=== PATIENT | female | born 1985 ===

== ENCOUNTER 2021-04-30 10:17 | Emergency (ER) | payer OTHER, SELFPAY ==
[2021-04-30] VITALS (9 sets, daily range): BP systolic 118–189; BP diastolic 60–138; PULSE 52–92; RESP 12–24; TEMP 36.7–36.8; O2SAT 97–98; BMI 30.4
--- NOTE | ~2021-04-30 | CT_ITS ---
EXAMINATION: CTA NECK WITH CONTRAST (STROKE) CTA BRAIN WITH CONTRAST (STROKE) CLINICAL INFORMATION: Suspect acute stroke. Assess for major vessel occlusion. Please call report. Severe headache. Sudden onset. COMPARISON: Unenhanced CT the head 04/30/2021 TECHNIQUE: CTA of the head and neck was performed in the axial plane from the mediastinum to the skull vertex using 70 mL Omnipaque 350 intravenous contrast. Additional reformatted multiplanar images including maximum intensity projection MIP images are generated on the CT workstation. This CT examination was performed using dose optimization techniques as appropriate, variously including the following: *Automated exposure control *Adjustment of mA and/or kV according to patient size (this includes techniques or standardized protocols for targeted exams where dose is matched to indication/reason for exam; i.e. extremities or head) *Use of iterative reconstruction technique DLP: 1613 mGy-cm FINDINGS: The degree of stenosis determined by criteria similar to NASCET. Brain: Delayed IV contrast and CT the head: The ventricles and sulci are normal in size and configuration. No focal parenchymal lesions of the brain or abnormal extra-axial fluid collections are identified. No intracranial hemorrhage, tumors or acute infarcts are visualized. Normal intraluminal opacification is noted in the major intracranial dural sinuses. The visualized paranasal sinuses, mastoid air cells and middle ear cavities demonstrate no significant opacification. The orbits and globes are normal in appearance. CT angiography neck: The cervical carotid and vertebral artery systems are normal in appearance. The right vertebral artery is dominant. The carotid bulbs are patent. Conventional branching anatomy of the great vessels in relation to the transverse aorta is visualized. CT angiography head: type origin of the right posterior cerebral artery is visualized. No intracranial occlusions, stenoses or aneurysms are visualized. Visualized lung apices are clear. The thyroid is normal in appearance. No cervical lymphadenopathy is identified. Mild left and moderate intervertebral disc space narrowing and endplate osteophytosis posteriorly is present at C5-C6 and C6-C7. CT/CT angio head neck stroke IMPRESSION: 1. Normal CT angiography of the head and neck. No large vessel intracranial occlusions. No intracranial aneurysms identified. Patent carotid bulbs. 2. No intracranial abnormalities identified. 3. Mild multilevel chronic spondylosis of the cervical spine. This result was discussed with Kenan Erwin MD by telephone at 04/30/2021 12:03 PM and it was ascertained that the content and urgency of the report was understood at the time of direct communication.
--- NOTE | ~2021-04-30 | CT_ITS ---
EXAMINATION: CT HEAD WITHOUT CONTRAST (STROKE PROTOCOL) CLINICAL INFORMATION: Stroke protocol. Severe headache, sudden onset. COMPARISON: None TECHNIQUE: Contiguous axial imaging was performed from the skull base to vertex without intravenous administration of contrast. This CT examination was performed using dose optimization techniques as appropriate, variously including the following: *Automated exposure control *Adjustment of mA and/or kV according to patient size (this includes techniques or standardized protocols for targeted exams where dose is matched to indication/reason for exam; i.e. extremities or head) *Use of iterative reconstruction technique DLP: 713 mGy-cm FINDINGS: There is no intracranial hemorrhage, hematoma, or extra-axial fluid collection. The ventricles are normal in size. There is no hydrocephalus, edema, or mass effect. The burciaga-white matter differentiation appears symmetric. There is no acute infarct or mass lesion. The calvarium appears intact. There is no pneumocephalus or orbital emphysema. The visualized sinuses and middle ears and mastoid air cells show no significant mucosal thickening. There are no air-fluid levels. CT/CT head for stroke IMPRESSION: No acute intracranial process seen. This critical result was discussed with Dr. Erwin at 10:48 AM on 04/30/2021. It was ascertained that the content and urgency of the report was understood at the time of direct communication.
--- NOTE | 2021-04-30 10:25 | ED.HA ---
HPI - Headache General Chief Complaint: Headache Stated Complaint: ? Time Seen by Provider: 04/30/21 10:18 Source: patient Mode of arrival: ambulatory History of Present Illness HPI Narrative: THIS IS A 36 YEARS OLD FEMALE PRESENTED TO THE EMERGENCY ROOM WITH A SUDDEN ONSET OF A HEADACHE 07/10 A BRUIT Onset (ago): hour(s) (1) Onset description: suddenly Location: frontal and temporal Severity: severe Quality & Timing: aching and worst headache of life Associated symptoms: none Related Data Allergies Allergy/AdvReac Type Severity Reaction Status Date / Time No Known Allergies Allergy Verified 04/30/21 10:22 Review of Systems Review of Systems: Yes all other systems are reviewed and are negative Constitutional: Constitutional: Reports no additional constitutional complaints Eyes: Eyes: Reports no additional eye complaints ENT: Reports system reviewed and no additional complaints, except as documented Cardiovascular: Cardiovascular: Reports no additional cardiovascular complaints Gastrointestinal: Gastrointestinal: Reports no additional gastrointestinal complaints PMFSH Social History Social History Advance Directives: No Advance Directives Information Provided: No Physical Exam Vital Signs: Vital Signs: Last Vital Signs Temp 98.3 F 04/30/21 13:56 Pulse 78 04/30/21 16:16 Resp 14 04/30/21 14:12 BP 154/64 H 04/30/21 16:16 Pulse Ox 97 04/30/21 14:12 Body Mass Index 30.4 Const: Other: PATIENT IS IN ACUTE DISTRESS CRYING Nutritional Appearance: average body habitus HENMT: Head: Yes normal to inspection General nose exam: Normal external nose present Face and sinus: Yes normal facial exam Eyes: General: appearance normal, both eyes and all related structures EOM: EOMs intact bilaterally Neck: Neck: Yes normal visual inspection, Yes full ROM, Yes no lymphadenopathy and Yes no meningeal signs Chest: Chest palpation & inspection: normal inspection of the chest Resp: Effort & Inspection: normal respiratory effort Auscultation: clear to auscultation bilaterally Cardio: Rate: regular rate Rhythm: regular rhythm GI: Inspection: Yes normal to inspection Palpation (GI): Soft to palpation, not firm, nontender and no guarding Auscultation: normal bowel sounds Neuro: Other: AWAKE ALERT ORIENTED X3 NO NEURO DEFICIT General: no meningeal signs Course Course Course Narrative: REEXAMINED AT 14:48 AND SHE IS FEELING BETTER SHE IS COMFORTABLE. HER WORKUP IS NEGATIVE WE DID CT HEAD, WE DID A CT ANGIOGRAPHY OF THE HEAD WE DID A SPINAL TAP. I THINK THE PATIENT CAN BE SAFELY DISCHARGED HOME AT THIS POINT Reevaluation(s) Reevaluation #1: We were about to discharge the patient and she started to vomit, at this point we give Reglan IV and the case was signed out to Dr Cordova [facility] - Headache Lab Data Attestation: I reviewed the patient's lab results. Result diagrams: 04/30/21 11:21 04/30/21 11:21 Labs: Lab Results 04/30/21 04/30/21 04/30/21 Range/Units 10:34 10:43 11:21 WBC 7.6 (4.8-10.8) X10*3/uL RBC 4.66 (4.20-5.50) X10*6/uL Hgb 14.1 (12.0-16.0) g/dl Hct 40.1 (37-47) % MCV 86.1 (80-98) fL MCH 30.3 (27.0-33.0) pg MCHC 35.2 H (31.0-35.0) g/dl RDW 13.2 (11.0-16.0) % Plt Count 223 (160-400) X10*3/uL MPV 11.4 (9.4-12.3) fL Immature Gran % (Auto) 0.3 (0.0-0.4) % Neut % (Auto) 65.5 (45-73) % Lymph % (Auto) 23.1 (20-40) % Lincoln % (Auto) 6.5 (2-11) % Eos % (Auto) 4.2 H (0-4) % Baso % (Auto) 0.4 (0-2) % Lymph # (Auto) 1.8 (1.2-4.9) X10*3/uL Lincoln # (Auto) 0.5 (0.1-1.2) X10*3/uL Eos # (Auto) 0.3 (0.0-0.4) X10*3/uL Baso # (Auto) 0.0 (0.0-0.2) X10*3/uL Abs Immat Gran (auto) 0.02 (0.00-0.03) X10*3/uL Absolute Neuts (auto) 5.0 (2.0-8.3) X10*3/uL Absolute Nucleated RBC 0.000 (0.0-0.012) X10*3/uL Nucleated RBC % (auto) 0.0 (0.0-0.2) /100WBC Whole Blood PT 11.9 (11.1-13.5) sec Whole Blood INR 1.0 (0.9-1.1) Sodium (135-145) mmol/L Potassium (3.3-5.1) mmol/L Chloride (96-108) mmol/L Carbon Dioxide (22-29) mmol/L Anion Gap (12-20) BUN (9-16) mg/dL Creatinine (0.5-1.4) mg/dL Estim Creat Clear Calc Estimated GFR POC Glucose 119 H (60-115) mg/dL Random Glucose (60-115) mg/dL Calcium (8.4-10.2) mg/dL Total Bilirubin (0.0-1.0) mg/dL AST (5-31) U/L ALT (0-31) U/L Alkaline Phosphatase (39-117) U/L Total Protein (6.5-8.0) g/dL Albumin (3.5-5.0) g/dL Beta HCG, Quant mIU/mL CSF Tube Number CSF Volume CSF Appearance CSF Color CSF WBC CSF RBC CSF Neutrophils CSF Lymphocytes CSF Monocytes % CSF Other Cells % CSF Appearance (b) CSF Total Protein (15-45) mg/dL 04/30/21 04/30/21 04/30/21 Range/Units 11:21 12:04 12:04 WBC (4.8-10.8) X10*3/uL RBC (4.20-5.50) X10*6/uL Hgb (12.0-16.0) g/dl Hct (37-47) % MCV (80-98) fL MCH (27.0-33.0) pg MCHC (31.0-35.0) g/dl RDW (11.0-16.0) % Plt Count (160-400) X10*3/uL MPV (9.4-12.3) fL Immature Gran % (Auto) (0.0-0.4) % Neut % (Auto) (45-73) % Lymph % (Auto) (20-40) % Lincoln % (Auto) (2-11) % Eos % (Auto) (0-4) % Baso % (Auto) (0-2) % Lymph # (Auto) (1.2-4.9) X10*3/uL Lincoln # (Auto) (0.1-1.2) X10*3/uL Eos # (Auto) (0.0-0.4) X10*3/uL Baso # (Auto) (0.0-0.2) X10*3/uL Abs Immat Gran (auto) (0.00-0.03) X10*3/uL Absolute Neuts (auto) (2.0-8.3) X10*3/uL Absolute Nucleated RBC (0.0-0.012) X10*3/uL Nucleated RBC % (auto) (0.0-0.2) /100WBC Whole Blood PT (11.1-13.5) sec Whole Blood INR (0.9-1.1) Sodium 137 (135-145) mmol/L Potassium 3.2 L (3.3-5.1) mmol/L Chloride 106 (96-108) mmol/L Carbon Dioxide 22 (22-29) mmol/L Anion Gap 12 (12-20) BUN 11 (9-16) mg/dL Creatinine 0.85 (0.5-1.4) mg/dL Estim Creat Clear Calc 105.7 Estimated GFR > 60 POC Glucose (60-115) mg/dL Random Glucose 99 (60-115) mg/dL Calcium 8.6 (8.4-10.2) mg/dL Total Bilirubin 0.6 (0.0-1.0) mg/dL AST 21 (5-31) U/L ALT 26 (0-31) U/L Alkaline Phosphatase 84 (39-117) U/L Total Protein 6.9 (6.5-8.0) g/dL Albumin 4.0 (3.5-5.0) g/dL Beta HCG, Quant < 2 mIU/mL CSF Tube Number 3 Cancelled CSF Volume Cancelled CSF Appearance Cancelled CSF Color Cancelled CSF WBC Cancelled CSF RBC Cancelled CSF Neutrophils Cancelled CSF Lymphocytes Cancelled CSF Monocytes % Cancelled CSF Other Cells % Cancelled CSF Appearance (b) Clear, Colorless CSF Total Protein 27.3 (15-45) mg/dL 04/30/21 04/30/21 Range/Units 12:04 12:11 WBC (4.8-10.8) X10*3/uL RBC (4.20-5.50) X10*6/uL Hgb (12.0-16.0) g/dl Hct (37-47) % MCV (80-98) fL MCH (27.0-33.0) pg MCHC (31.0-35.0) g/dl RDW (11.0-16.0) % Plt Count (160-400) X10*3/uL MPV (9.4-12.3) fL Immature Gran % (Auto) (0.0-0.4) % Neut % (Auto) (45-73) % Lymph % (Auto) (20-40) % Lincoln % (Auto) (2-11) % Eos % (Auto) (0-4) % Baso % (Auto) (0-2) % Lymph # (Auto) (1.2-4.9) X10*3/uL Lincoln # (Auto) (0.1-1.2) X10*3/uL Eos # (Auto) (0.0-0.4) X10*3/uL Baso # (Auto) (0.0-0.2) X10*3/uL Abs Immat Gran (auto) (0.00-0.03) X10*3/uL Absolute Neuts (auto) (2.0-8.3) X10*3/uL Absolute Nucleated RBC (0.0-0.012) X10*3/uL Nucleated RBC % (auto) (0.0-0.2) /100WBC Whole Blood PT (11.1-13.5) sec Whole Blood INR (0.9-1.1) Sodium (135-145) mmol/L Potassium (3.3-5.1) mmol/L Chloride (96-108) mmol/L Carbon Dioxide (22-29) mmol/L Anion Gap (12-20) BUN (9-16) mg/dL Creatinine (0.5-1.4) mg/dL Estim Creat Clear Calc Estimated GFR POC Glucose (60-115) mg/dL Random Glucose (60-115) mg/dL Calcium (8.4-10.2) mg/dL Total Bilirubin (0.0-1.0) mg/dL AST (5-31) U/L ALT (0-31) U/L Alkaline Phosphatase (39-117) U/L Total Protein (6.5-8.0) g/dL Albumin (3.5-5.0) g/dL Beta HCG, Quant mIU/mL CSF Tube Number 4 1 CSF Volume 0.5 0.5 CSF Appearance CLEAR CLEAR CSF Color COLORLESS COLORLESS CSF WBC 4 3 CSF RBC 0 1 CSF Neutrophils CSF Lymphocytes 100 100 CSF Monocytes % CSF Other Cells % CSF Appearance (b) CSF Total Protein (15-45) mg/dL Imaging Data CT scan - head: Radiologist's impression: d. No intracranial occlusions, stenoses or aneurysms are visualized. Visualized lung apices are clear. The thyroid is normal in appearance. No cervical lymphadenopathy is identified. Mild left and moderate intervertebral disc space narrowing and endplate osteophytosis posteriorly is present at C5-C6 and C6-C7. CT/CT angio head? neck stroke IMPRESSION: ? 1. Normal CT angiography of the head and neck. No large vessel intracranial occlusions. No intracranial aneurysms identified. Patent carotid bulbs. 2. No intracranial abnormalities identified. 3. Mild multilevel chronic spondylosis of the cervical spine. ? This result was discussed with Kenan Erwin MD by telephone at 04/30/2021 12:03 PM and it was ascertained that the content and urgency of the report was understood at the time of direct communication. ? Dictated By: ROMA TOVAR MD Signed By: <Electronically signed by ROMA TOVAR MD in OV> 04/30/21 1203 DD/ 1041 TD/TT:? Manager Contact: EF Procedures Lumbar Puncture Time Out Performed: Yes Patient Position: upright Skin Prep: Povidone-Iodine 1% Local Anesthetic: lidocaine 1% Amount of anesthesia used (mL): 5 Spinal Needle Gauge: 22G Interspace Used: L3-L4 Fluid Initially Obtained: clear Complications: none Discharge Plan Discharge Clinical Impression: Headache Patient Disposition: Home, Self-Care Instructions: Acute Headache (ED) Additional Instructions: FOLLOW-UP WITH YOUR PRIMARY CARE PHYSICIAN, RETURN IF YOU WORSE YOU COULD TAKE IBUPROFEN 800 MG 3 TIMES A DAY NEEDED Referrals: Physician,Unknown [Primary Care Provider] - 2 days
[2021-04-30] MEDS: HYDROmorphone HCl 0.5 MG/0.5 ML SYRINGE IVPUSH (10:27)
[2021-04-30] MEDS: LORazepam 2 MG/ML VIAL 0.5 MG IVPUSH (10:32)
[2021-04-30 10:39] LABS: Glucose, Whole Blood 119 mg/dL (60-115)
[2021-04-30 10:50] LABS: Prothrombin Time Whole Bld POC 11.9 sec (11.1-13.5)
[2021-04-30] MEDS: iohexoL 350 MG/ML 100 ML INFUS..BTL IV (11:02)
--- NOTE | 2021-04-30 11:15 | PC.NURSE ---
patient back form ct. reports pain much improved, just feels slight pressure in back of head. patient reports having covid about 2.5 months ago and had h/a when she had covid but this has been the worst. waiting results. speaking clearly at this time.
[2021-04-30 11:27] LABS: MANUAL DIFF FLAG NO
[2021-04-30 11:30] LABS: Basophils Percent Auto 0.4 % (0-2); Eosinophils Absolute Auto 0.3 X10*3/uL (0.0-0.4); Eosinophils Percent Auto 4.2 % (0-4); Hematocrit 40.1 % (37-47); Hemoglobin 14.1 g/dl (12.0-16.0); Imm Gran Abs Auto 0.02 X10*3/uL (0.00-0.03); Imm Gran Pct Auto 0.3 % (0.0-0.4); Lymphocytes Absolute Auto 1.8 X10*3/uL (1.2-4.9); Lymphocytes Percent Auto 23.1 % (20-40); Mean Corpuscular HGB Conc 35.2 g/dl (31.0-35.0); Mean Corpuscular Hemoglobin 30.3 pg (27.0-33.0); Mean Corpuscular Volume 86.1 fL (80-98); Mean Platelet Volume 11.4 fL (9.4-12.3); Monocytes Absolute Auto 0.5 X10*3/uL (0.1-1.2); Monocytes Percent Auto 6.5 % (2-11); Neutrophils Percent Auto 65.5 % (45-73); Platelet Count 223 X10*3/uL (160-400); Red Blood Count 4.66 X10*6/uL (4.20-5.50); Red Cell Distribution Width 13.2 % (11.0-16.0); White Blood Count 7.6 X10*3/uL (4.8-10.8)
[2021-04-30] MEDS: LORazepam 2 MG/ML VIAL 1 MG IVPUSH ×2 (11:43→12:04)
[2021-04-30 11:53] LABS: Alanine Aminotransferase 26 U/L (0-31); Alkaline Phosphatase 84 U/L (39-117); Anion Gap 12 (12-20); Aspartate Amino Transferase 21 U/L (5-31); Bilirubin Total 0.6 mg/dL (0.0-1.0); Blood Urea Nitrogen 11 mg/dL (9-16); Calcium 8.6 mg/dL (8.4-10.2); Carbon Dioxide 22 mmol/L (22-29); Chloride 106 mmol/L (96-108); Creatinine Clr Calc Pharmacy 105.7; Estimated Glomerular Filt Rate > 60; Glucose Random 99 mg/dL (60-115); Potassium 3.2 mmol/L (3.3-5.1); Sodium 137 mmol/L (135-145); Total Protein 6.9 g/dL (6.5-8.0)
[2021-04-30 12:03] LABS: HCG Quantitative < 2 mIU/mL
[2021-04-30 12:54] LABS: Total Protein CSF 27.3 mg/dL (15-45)
[2021-04-30 13:01] LABS: Appearance CSF CLEAR
[2021-04-30 13:02] LABS: CSF Tube # 1; CSF Volume 0.5 ML; Color CSF COLORLESS
[2021-04-30 13:03] LABS: Lymphocytes CSF 100 %; Red Blood Cell CSF 1 MM*3; White Blood Cell CSF 3 MM*3
[2021-04-30 13:03] LABS: Appearance CSF CLEAR; CSF Tube # 4; CSF Volume 0.5 ML; Color CSF COLORLESS; Red Blood Cell CSF 0 MM*3; White Blood Cell CSF 4 MM*3
[2021-04-30 13:04] LABS: Lymphocytes CSF 100 %
[2021-04-30 13:07] LABS: CSF Appearance Clear, Colorless; CSF Tube # 3
[2021-04-30] MEDS: 0.9 % Sodium Chloride 1,000 ML 999 ML IVCONT ×2 (15:02→15:03)
[2021-04-30] MEDS: Ketorolac Tromethamine 15 MG/ML VIAL 30 MG IVPUSH (16:08)
[2021-04-30] MEDS: Metoclopramide HCl 10 MG/2 ML VIAL IVPUSH (16:34)
[2021-04-30] MEDS: diphenhydrAMINE HCL 50 MG/ML VIAL 25 MG IVPUSH (16:35)
--- NOTE | 2021-04-30 17:04 | PC.NURSE ---
attempted d/c of the pt. her went to pull the car around while this RN got the pt into the wheelchair. once in the wheelchair she started having dry heaves, reporting nausea and then vomiting small amount. MD notified and pt d/c was discontinued, she was helped back into bed and started a new IV with Reglan and Benadryl. pt is now asleep, no vomiting since in the wheel chair.
[2021-05-03 19:55] LABS: HSV 1 DNA, CSF Not Detected (Not Detected); HSV 2 DNA, CSF Not Detected (Not Detected); Specimen Source CSF
== END 2021-04-30 19:40 | disposition home or self-care (01) ==
PROVIDERS: Emergency Medicine; Emergency Provider Emergency Medicine Emergency Medical Services
DX: R51.9 Headache, unspecified (principal)
CPT/HCPCS: 36415; 62270; 70450; 70496; 70498; 80053; 82947; 84157; 84702; 85025; 85610; 87015; 87070; 87205; 87529; 89051; 96361; 96374; 96375; 96376; 99284; 99285; J1170; J1200; J1885; J2060; J2405; J2765; Q9967

== ENCOUNTER 2021-05-02 17:50 | Emergency (ER) | payer OTHER, SELFPAY ==
[2021-05-02 19:26] VITALS: BP 165/91; PULSE 70; RESP 18; TEMP 37.3; O2SAT 98; BMI 25.8
[2021-05-02 20:52] VITALS: BP 174/84; PULSE 70; RESP 22; O2SAT 98
[2021-05-02 21:01] LABS: MANUAL DIFF FLAG NO
[2021-05-02 21:03] LABS: Basophils Percent Auto 0.4 % (0-2); Eosinophils Absolute Auto 0.2 X10*3/uL (0.0-0.4); Eosinophils Percent Auto 1.6 % (0-4); Hemoglobin 14.3 g/dl (12.0-16.0); Imm Gran Abs Auto 0.03 X10*3/uL (0.00-0.03); Imm Gran Pct Auto 0.3 % (0.0-0.4); Lymphocytes Absolute Auto 2.4 X10*3/uL (1.2-4.9); Lymphocytes Percent Auto 23.6 % (20-40); Mean Corpuscular HGB Conc 34.9 g/dl (31.0-35.0); Mean Corpuscular Hemoglobin 30.2 pg (27.0-33.0); Mean Corpuscular Volume 86.5 fL (80-98); Mean Platelet Volume 11.5 fL (9.4-12.3); Monocytes Absolute Auto 0.6 X10*3/uL (0.1-1.2); Monocytes Percent Auto 5.7 % (2-11); Neutrophils Absolute Auto 7.1 X10*3/uL (2.0-8.3); Neutrophils Percent Auto 68.4 % (45-73); Platelet Count 260 X10*3/uL (160-400); Red Blood Count 4.74 X10*6/uL (4.20-5.50); Red Cell Distribution Width 13.2 % (11.0-16.0); White Blood Count 10.4 X10*3/uL (4.8-10.8)
[2021-05-02 21:23] LABS: Anion Gap 14 (12-20); Blood Urea Nitrogen 9 mg/dL (9-16); Calcium 9.2 mg/dL (8.4-10.2); Carbon Dioxide 22 mmol/L (22-29); Chloride 109 mmol/L (96-108); Creatinine Clr Calc Pharmacy 100.6; Estimated Glomerular Filt Rate > 60; Glucose Random 100 mg/dL (60-115); Potassium 3.6 mmol/L (3.3-5.1); Sodium 141 mmol/L (135-145)
--- NOTE | 2021-05-02 21:37 | PC.NURSE ---
Collected UA with regular stickers and sent to lab at 2050.
--- NOTE | 2021-05-02 21:42 | ED_ITS ---
HPI - General Adult General Chief complaint: General Medical Stated complaint: NECK STIFFNESS Time Seen by Provider: 05/02/21 21:14 Source: patient Mode of arrival: ambulatory History of Present Illness HPI narrative: This is a 36-year-old female who denies the following:prior history of headaches, MVC, recent loomis or hiking, fever/chills, involvement of hearing or visual disturbance, gait instability, IVDA, rashes, sore throat, recent exercise regimen and presents with headache after seen on 04/30 for same. Patient states that she was not pain free at the time of her discharge and yet she was discharged anyway. She states that since that time she has continued to have pain, states she has been able to sleep, but otherwise reports continued pain throughout the day and states she is unable to flex or extend her head and that the pain is maximal when she is laying down to the point that she has had to sleep on 4-5 pills since being discharged from this emergency room. She states that her pain is marginally better when she sits up and this pain is unchanged when she moves from a sitting to a standing position. She denies any numbness or tingling into either upper extremity and denies any motor strength deficits that is. She states that her pain is relieved in her upper back when she flexes forward at the hip but then her head is ?pounding?. Patient states ?why would he give me a spinal headache on top of the headache I already had?. Related Data Previous Rx's Medication Instructions Recorded metoclopramide HCl 10 mg tablet 10 mg PO Q6H PRN #14 tab 04/30/21 (Reglan) cyclobenzaprine 10 mg tablet 10 mg PO BEDTIME PRN #3 tab 05/02/21 ketorolac 10 mg tablet 10 mg PO Q6H PRN 5 Days #20 tab 05/02/21 Allergies Allergy/AdvReac Type Severity Reaction Status Date / Time morphine Allergy Itching Verified 05/02/21 19:26 Review of Systems Review of Systems: Pertinent positives and negatives as stated in HPI 10 point review of systems is otherwise negative. [facility] Past Medical History Source: nursing notes reviewed Medical History Patient denies medical problems Social History Social History Advance Directives: No Patient : No Physical Exam Vital Signs: Vital Signs: Last Vital Signs Temp 99.1 F 05/02/21 19:26 Pulse 64 05/02/21 23:13 Resp 22 H 05/02/21 23:13 BP 198/89 H 05/02/21 23:13 Pulse Ox 98 05/02/21 20:52 Body Mass Index 25.8 VITAL SIGNS: Reviewed. GENERAL: Well developed, well nourished, in no acute distress. HEAD: Normocephalic/atraumatic, there are no palpable occipital lymph nodes but reported exquisite pain on palpation EYES: PERRLA, EOMI intact without pain, no nystagmus EARS: Ext canals without abnormality, TMs non-bulging and non-erythematous NOSE: Nares patent bilateral OROPHARYNX: no oral lesions noted, posterior pharynx clear and non-erythematous without noted tonsillar enlargement/erythema/exudates NECK: Supple, no adenopathy LUNGS: Normal breath sounds. No adventitious sounds or accessory muscle use. SpO2<98> CARDIOVASCULAR: Regular rate and rhythm without noted murmurs, no JVD or lower extremity edema. ABDOMEN: Soft, non-tender, non-distended with bowel sounds. MUSCULOSKELETAL: No tenderness, deformities, or effusions noted on gross inspection. EXTREMITIES: No cyanosis, clubbing or edema. SKIN: Inspection of the skin reveals no rashes, ulcerations, jaundice, pallor, or petechiae. NEUROLOGIC: Alert and oriented x 4. Strength and sensation to light touch were grossly intact x 4, no pronator drift, no facial asymmetry, cranial nerves 2-12 grossly intact, and cerebellar testing is without deficit. Course Course Course Narrative: 36-year-old female extensively worked up on Sunday without findings of adenopathy, meningitis, and patient is not currently encephalopathic which lower suspicion for HSV, as patient has had no reported pain relief since her discharge it is unlikely that this headache that she has currently is consistent with a spinal headache and on clinical exam given the fact that her pain is worse with laying down this also makes spinal headache unlikely. There are no noted focal deficits, no identification of ear or throat infection (as well as nothing identified in terms of abscesses on 04/30), to better explain patient's presentation. Repeat lab work today is within normal limits, but will pursue ESR/CRP in addition to administering IV fluids, muscle relaxant/lidocaine patch, Norvasc, Ativan. On review of all investigations there are no acute findings, and specifically ESR/CRP are not elevated. On re-evaluation patient is feeling somewhat better and on passing observation of patient she was noted to be interacting with her guest with what appeared to be easy movement on flexion of her head without noticed wincing. Will provide patient with additional Toradol as well as instructions to follow-up with her primary care provider regarding her blood pressure. Patient will also be given a referral for Neurology to further evaluate less emergent etiologies which may be contributing to patient's symptoms. Medical Decision Making Lab Data Result diagrams: 05/02/21 20:56 05/02/21 20:56 Labs: Lab Results 05/02/21 05/02/21 05/02/21 Range/Units 20:51 20:51 20:51 WBC (4.8-10.8) X10*3/uL RBC (4.20-5.50) X10*6/uL Hgb (12.0-16.0) g/dl Hct (37-47) % MCV (80-98) fL MCH (27.0-33.0) pg MCHC (31.0-35.0) g/dl RDW (11.0-16.0) % Plt Count (160-400) X10*3/uL MPV (9.4-12.3) fL Immature Gran % (Auto) (0.0-0.4) % Neut % (Auto) (45-73) % Lymph % (Auto) (20-40) % Crockett % (Auto) (2-11) % Eos % (Auto) (0-4) % Baso % (Auto) (0-2) % Lymph # (Auto) (1.2-4.9) X10*3/uL Crockett # (Auto) (0.1-1.2) X10*3/uL Eos # (Auto) (0.0-0.4) X10*3/uL Baso # (Auto) (0.0-0.2) X10*3/uL Abs Immat Gran (auto) (0.00-0.03) X10*3/uL Absolute Neuts (auto) (2.0-8.3) X10*3/uL Absolute Nucleated RBC (0.0-0.012) X10*3/uL Nucleated RBC % (auto) (0.0-0.2) /100WBC ESR (0-20) MM/HR Sodium (135-145) mmol/L Potassium (3.3-5.1) mmol/L Chloride (96-108) mmol/L Carbon Dioxide (22-29) mmol/L Anion Gap (12-20) BUN (9-16) mg/dL Creatinine (0.5-1.4) mg/dL Estim Creat Clear Calc Estimated GFR Random Glucose (60-115) mg/dL Calcium (8.4-10.2) mg/dL C-Reactive Protein (< or = 0.50) mg/dL Urine Color DARK YELLOW Urine Appearance HAZY Urine pH 6.0 (5.0-8.0) Ur Specific Arena >= 1.030 H (1.005-1.025) Urine Protein 1+ H (NEG-TRACE) MG/DL Urine Glucose (UA) NEG (NEG) MG/DL Urine Ketones 5 (NEG) MG/DL Urine Blood NEG (NEG) Urine Nitrite NEG (NEG) Ur Leukocyte Esterase NEG (NEG) Urine RBC 0 (0) /HPF Urine WBC 0 (0-4) /HPF Ur Squamous Epith Cells 2+ /LPF Calcium Oxalate Crystal 3+ /LPF Urine Bacteria TRACE /LPF Urine Mucus 4+ /LPF Urine Test NEGATIVE (NEGATIVE) Urine Opiates Screen Not Detected (Not Detect) Ur Barbiturates Screen Not Detected (Not Detect) Ur Phencyclidine Scrn Not Detected (Not Detect) Ur Amphetamines Screen Not Detected (Not Detect) U Benzodiazepines Scrn Not Detected (Not Detect) Urine Cocaine Screen Not Detected (Not Detect) U Marijuana (THC) Screen POSITIVE H (Not Detect) 05/02/21 05/02/21 05/02/21 Range/Units 20:56 20:56 20:56 WBC 10.4 (4.8-10.8) X10*3/uL RBC 4.74 (4.20-5.50) X10*6/uL Hgb 14.3 (12.0-16.0) g/dl Hct 41.0 (37-47) % MCV 86.5 (80-98) fL MCH 30.2 (27.0-33.0) pg MCHC 34.9 (31.0-35.0) g/dl RDW 13.2 (11.0-16.0) % Plt Count 260 (160-400) X10*3/uL MPV 11.5 (9.4-12.3) fL Immature Gran % (Auto) 0.3 (0.0-0.4) % Neut % (Auto) 68.4 (45-73) % Lymph % (Auto) 23.6 (20-40) % Crockett % (Auto) 5.7 (2-11) % Eos % (Auto) 1.6 (0-4) % Baso % (Auto) 0.4 (0-2) % Lymph # (Auto) 2.4 (1.2-4.9) X10*3/uL Crockett # (Auto) 0.6 (0.1-1.2) X10*3/uL Eos # (Auto) 0.2 (0.0-0.4) X10*3/uL Baso # (Auto) 0.0 (0.0-0.2) X10*3/uL Abs Immat Gran (auto) 0.03 (0.00-0.03) X10*3/uL Absolute Neuts (auto) 7.1 (2.0-8.3) X10*3/uL Absolute Nucleated RBC 0.000 (0.0-0.012) X10*3/uL Nucleated RBC % (auto) 0.0 (0.0-0.2) /100WBC ESR 7 (0-20) MM/HR Sodium 141 (135-145) mmol/L Potassium 3.6 (3.3-5.1) mmol/L Chloride 109 H (96-108) mmol/L Carbon Dioxide 22 (22-29) mmol/L Anion Gap 14 (12-20) BUN 9 (9-16) mg/dL Creatinine 0.82 (0.5-1.4) mg/dL Estim Creat Clear Calc 100.6 Estimated GFR > 60 Random Glucose 100 (60-115) mg/dL Calcium 9.2 D (8.4-10.2) mg/dL C-Reactive Protein (< or = 0.50) mg/dL Urine Color Urine Appearance Urine pH (5.0-8.0) Ur Specific Arena (1.005-1.025) Urine Protein (NEG-TRACE) MG/DL Urine Glucose (UA) (NEG) MG/DL Urine Ketones (NEG) MG/DL Urine Blood (NEG) Urine Nitrite (NEG) Ur Leukocyte Esterase (NEG) Urine RBC (0) /HPF Urine WBC (0-4) /HPF Ur Squamous Epith Cells /LPF Calcium Oxalate Crystal /LPF Urine Bacteria /LPF Urine Mucus /LPF Urine Test (NEGATIVE) Urine Opiates Screen (Not Detect) Ur Barbiturates Screen (Not Detect) Ur Phencyclidine Scrn (Not Detect) Ur Amphetamines Screen (Not Detect) U Benzodiazepines Scrn (Not Detect) Urine Cocaine Screen (Not Detect) U Marijuana (THC) Screen (Not Detect) 05/02/21 Range/Units 21:49 WBC (4.8-10.8) X10*3/uL RBC (4.20-5.50) X10*6/uL Hgb (12.0-16.0) g/dl Hct (37-47) % MCV (80-98) fL MCH (27.0-33.0) pg MCHC (31.0-35.0) g/dl RDW (11.0-16.0) % Plt Count (160-400) X10*3/uL MPV (9.4-12.3) fL Immature Gran % (Auto) (0.0-0.4) % Neut % (Auto) (45-73) % Lymph % (Auto) (20-40) % Crockett % (Auto) (2-11) % Eos % (Auto) (0-4) % Baso % (Auto) (0-2) % Lymph # (Auto) (1.2-4.9) X10*3/uL [place]ckett # (Auto) (0.1-1.2) X10*3/uL Eos # (Auto) (0.0-0.4) X10*3/uL Baso # (Auto) (0.0-0.2) X10*3/uL Abs Immat Gran (auto) (0.00-0.03) X10*3/uL Absolute Neuts (auto) (2.0-8.3) X10*3/uL Absolute Nucleated RBC (0.0-0.012) X10*3/uL Nucleated RBC % (auto) (0.0-0.2) /100WBC ESR (0-20) MM/HR Sodium (135-145) mmol/L Potassium (3.3-5.1) mmol/L Chloride (96-108) mmol/L Carbon Dioxide (22-29) mmol/L Anion Gap (12-20) BUN (9-16) mg/dL Creatinine (0.5-1.4) mg/dL Estim Creat Clear Calc Estimated GFR Random Glucose (60-115) mg/dL Calcium (8.4-10.2) mg/dL C-Reactive Protein 0.18 (< or = 0.50) mg/dL Urine Color Urine Appearance Urine pH (5.0-8.0) Ur Specific Arena (1.005-1.025) Urine Protein (NEG-TRACE) MG/DL Urine Glucose (UA) (NEG) MG/DL Urine Ketones (NEG) MG/DL Urine Blood (NEG) Urine Nitrite (NEG) Ur Leukocyte Esterase (NEG) Urine RBC (0) /HPF Urine WBC (0-4) /HPF Ur Squamous Epith Cells /LPF Calcium Oxalate Crystal /LPF Urine Bacteria /LPF Urine Mucus /LPF Urine Test (NEGATIVE) Urine Opiates Screen (Not Detect) Ur Barbiturates Screen (Not Detect) Ur Phencyclidine Scrn (Not Detect) Ur Amphetamines Screen (Not Detect) U Benzodiazepines Scrn (Not Detect) Urine Cocaine Screen (Not Detect) U Marijuana (THC) Screen (Not Detect) Discharge Plan Discharge Clinical Impression: Headache Patient Disposition: Home, Self-Care Instructions: General Headache (ED) Additional Instructions: 1. Tylenol 1000 mg, orally, every 6 hours as needed for pain control. Do not exceed 4000 mg within 24 hours. 2. Lidocaine patch, these are available [id number] and should be apply to area of maximal tenderness as directed on the outside packaging. 3. Follow-up with your primary care provider in the morning. 4. You have been provided with a neurology referral it is listed below. Return to the ER for acute worsening of symptoms. Prescriptions: New cyclobenzaprine 10 mg tablet 10 mg PO BEDTIME PRN (Reason: muscle spasm) Qty: 3 RF: 0 ketorolac 10 mg tablet 10 mg PO Q6H PRN (Reason: pain) 5 Days Qty: 20 RF: 0 No Action metoclopramide HCl [Reglan] 10 mg tablet 10 mg PO Q6H PRN (Reason: nausea and vomiting) Qty: 14 RF: 0 Referrals: Physician,Unknown [Primary Care Provider] - 2 days Wen Razo MD [Physician] - 2 days (Please evaluate for persistent headache, patient worked up with head CT, head/neck CTA, LP, full labs and inflammatory markers without acute etiology identified.)
[2021-05-02] MEDS: 0.9 % Sodium Chloride 2,000 ML 999 ML IV (21:51)
[2021-05-02 22:18] VITALS: BP 177/101; PULSE 59
[2021-05-02 22:18] LABS: C Reactive Protein 0.18 mg/dL (< or = 0.50)
[2021-05-02] MEDS: Cyclobenzaprine HCl 5 MG TABLET PO (22:18)
[2021-05-02] MEDS: Ketorolac Tromethamine 15 MG/ML VIAL IVPUSH (22:18)
[2021-05-02] MEDS: amLODIPine Besylate 5 MG TABLET PO (22:18)
[2021-05-02] MEDS: Lidocaine 4 % Patch ADH..PATCH 1 PATCH TRANSDERMA (22:19)
[2021-05-02 22:22] LABS: Erythrocyte Sedimentation Rate 7 MM/HR (0-20)
[2021-05-02] MEDS: LORazepam 2 MG/ML VIAL 0.5 MG IVPUSH (23:00)
[2021-05-02 23:13] VITALS: BP 198/89; PULSE 64; RESP 22
[2021-05-02 23:22] LABS: Glucose Urine UA NEG (NEG); Leukocyte Esterase Urine NEG (NEG); Nitrite Urine NEG (NEG); Specific Gravity - Urine >= 1.030 (1.005-1.025); UACC Culture Trigger NO; Urine Blood NEG (NEG); Urine Ketones 5 MG/DL (NEG); Urine Protein 1+ MG/DL (NEG-TRACE)
[2021-05-02 23:23] LABS: Appearance Urine HAZY; Color Urine DARK YELLOW
[2021-05-02 23:24] LABS: UPreg QC Valid YES; Urine Pregnancy NEGATIVE (NEGATIVE)
[2021-05-02 23:32] LABS: Bacteria Urine TRACE /LPF; Mucus Urine 4+ /LPF; RBC Urine 0 /HPF (0); Squamous Epithelial Cell Urine 2+ /LPF; WBC Urine 0 /HPF (0-4)
[2021-05-02 23:33] LABS: Calcium Oxalate Crystals Urine 3+ /LPF
[2021-05-02 23:42] LABS: Amphetamine Screen Urine Not Detected (Not Detect); Barbiturates, Urine Not Detected (Not Detect); Benzodiazepines Screen Urine Not Detected (Not Detect); Cannabinoid Screen Urine POSITIVE (Not Detect); Cocaine Screen Urine Not Detected (Not Detect); Opiate Screen Urine Not Detected (Not Detect); Phencyclidine Screen Urine Not Detected (Not Detect)
[2021-05-03 00:06] VITALS: BP 200/83; PULSE 70
[2021-05-03] MEDS: Labetalol HCL 100 MG/20 ML VIAL IVPUSH (00:06)
[2021-05-03 00:44] VITALS: BP 152/71; PULSE 74; RESP 18; O2SAT 100
== END 2021-05-03 01:11 | disposition home or self-care (01) ==
PROVIDERS: Emergency Provider Student in an Organized Health Care Education/Training Program
DX: R51.9 Headache, unspecified (principal)
CPT/HCPCS: 36415; 80048; 80307; 81001; 81025; 85025; 85652; 86140; 96361; 96374; 96375; 99284; J1885; J2060

== ENCOUNTER 2024-05-11 06:24 | Emergency (ER) | payer OTHER, SELFPAY ==
--- NOTE | 2024-05-11 | ECG_ITS ---
Test Reason : chest px Blood Pressure : / mmHG Vent. Rate : 063 BPM Atrial Rate : 063 BPM P-R Int : 154 ms QRS Dur : 116 ms QT Int : 488 ms P-R-T Axes : 061 -04 031 degrees QTc Int : 499 ms Normal sinus rhythm Incomplete right bundle branch block Prolonged QT Abnormal ECG No previous ECGs available Referred By: Generic ED Physician Electronically Signed By:RHODA NAYAK MD
--- NOTE | ~2024-05-11 | XR_ITS ---
EXAMINATION: XR CHEST CLINICAL INFORMATION: Chest pain COMPARISON: None available. TECHNIQUE: 2 views of the chest were obtained. FINDINGS: No significant abnormality is noted involving the heart, lungs, mediastinum, bony thorax or soft tissues. XR/XR chest 2V IMPRESSION: No acute process.
--- NOTE | ~2024-05-11 | US_ITS ---
EXAMINATION: US ABDOMEN LIMITED CLINICAL INFORMATION: Right upper quadrant pain. COMPARISON: None available. TECHNIQUE: Real-time imaging of the right upper quadrant abdominal viscera. FINDINGS: PANCREAS: Normal. LIVER: Normal. The liver is normal in size. The liver contour is normal. Parenchymal echogenicity is normal. No focal hepatic lesion. There is no intrahepatic biliary duct dilatation seen. GALLBLADDER: Small echogenic dependent foci within the gallbladder lumen likely correspond to small gallstones, measuring 1 to 2 mm in diameter. Small polyps are possible, though not favored. No sonographic Silverio's sign. Normal wall thickness. No pericholecystic fluid. COMMON BILE DUCT: Normal in caliber measuring 0.5 cm in diameter. RIGHT KIDNEY: Normal. No hydronephrosis. No renal calculi or focal parenchymal lesions. The kidney measures 12.3 cm in maximum dimension. FREE FLUID: None. US/US abdomen limited IMPRESSION: Cholelithiasis without evidence of acute cholecystitis.
[2024-05-11 06:32] VITALS: BP 106/68; BP 143/82; PULSE 57; PULSE 65; RESP 14; TEMP 36.4; O2SAT 100; O2SAT 99; BMI 28.1
--- NOTE | 2024-05-11 06:35 | ED_ITS ---
HPI - Chest Pain General Chief Complaint: Chest Pain Stated Complaint: upper back and chest pain Time Seen by Provider: 05/11/24 06:30 Source: patient and EMS Mode of arrival: EMS Limitations: no limitations History of Present Illness ED Provider: Lalita Walker PA-C HPI narrative: 39 year old female with medical history of hypertension, panic attacks presenting to the emergency department with sharp back pain that radiates to the front of her chest, which she states started last night. The pain is 9/10 and is constant. She endorses hyperventilating, diaphoresis, nausea and 5 episodes of vomiting in the setting of back and chest pain last night. She reports having panic attacks in the past and states she has been experiencing recent stress in life however she reports her panic attacks are not similar to the symptoms she is experiencing now. She denies fevers, shortness of breath, headaches, dizziness, numbness or tingling, visual changes, and abdominal pain. Related Data Previous Rx's ?Medication ?Instructions ?Recorded metoclopramide HCl 10 mg tablet 10 mg PO Q6H PRN nausea and 04/30/21 (Reglan) vomiting #14 tabs cyclobenzaprine 10 mg tablet 10 mg PO BEDTIME PRN muscle spasm 05/02/21 #3 tabs ketorolac 10 mg tablet 10 mg PO Q6H PRN pain 5 days #20 05/02/21 tabs Allergies Allergy/AdvReac Type Severity Reaction Status Date / Time morphine Allergy Itching Verified 05/11/24 06:34 Review of Systems 2 Constitutional: Constitutional: Reports no additional constitutional complaints, Denies chills, Denies fever(s) and Denies night sweats Eyes: Eyes: Reports no additional eye complaints, Denies blurry vision, Denies change in vision, Denies diplopia, Denies eye discharge, Denies loss of vision and Denies eye pain ENT: Denies dizziness Cardiovascular: Cardiovascular: Reports no additional cardiovascular complaints, Reports chest pain, Denies lightheadedness, Denies Loss of Consciousness and Denies dyspnea Respiratory: Respiratory: Reports no additional respiratory complaints and Denies dyspnea Gastrointestinal: Gastrointestinal: Reports no additional gastrointestinal complaints, Reports abdominal pain, Denies melena, Denies hematochezia, Denies change in bowel habits and Denies change in stool character Genitourinary: Genitourinary: Denies hematuria, Denies urinary frequency, Denies dysuria, Denies urinary incontinence, Denies urinary hesitancy and Denies urinary urgency Musculoskeletal: Musculoskeletal: Reports no additional musculoskeletal complaints, Reports back pain, Denies numbness and Denies tingling Neurologic: Denies dizziness, Denies loss of vision, Denies numbness and Denies tingling Psychiatric: Psychiatric: Reports no additional psychiatric complaints Endocrine: Endocrine: Reports no additional endocrine complaints Hematologic/Lymphatic: Hematologic/Lymphatic: Reports no additional hematologic/lymphatic complaints Allergic/Immunologic: Allergic/Immunologic: Reports no additional allergic/immunologic complaints PMFSH Past Medical History Attestation statement: The following information was validated with the patient. Source: old records reviewed and nursing notes reviewed Medical History Patient denies medical problems Social History Social History Smoked in Last 30 Days: No Use of substances other than those prescribed or required for medical reasons: No Advance Directives: No Do you have a plan to hurt others: No Plan Physical Exam 2 Vital Signs: Vital Signs: Last Vital Signs Temp 98.0 F 05/11/24 10:37 Pulse 67 05/11/24 10:37 Resp 17 05/11/24 10:37 BP 149/77 H 05/11/24 10:37 Pulse Ox 99 05/11/24 10:37 O2 Del Method Room Air 05/11/24 10:37 BMI result Body Mass Index 28.1 Const: General: cooperative, no acute distress, alert and awake Nutritional Appearance: well nourished Orientation/consciousness: patient oriented x3 Limitations: no limitations HEENT: Head: Yes normal to inspection and Yes atraumatic Ears: hearing grossly normal bilaterally and external ears normal General nose exam: Normal external nose present, no nasal discharge noted and no epistaxis Face and sinus: Yes normal facial exam, No abrasion and No laceration Mouth: Normal oral and palatal mucosa present, no drooling and no muffled voice Eyes: General: appearance normal, both eyes and all related structures P eriorbital: periorbital findings normal Eyelids: Yes eyelids normal C onjunctivae: conjunctivae normal Pupils: Equal, round and reactive pupils present EOM: EOMs intact bilaterally Neck: Neck: Yes normal visual inspection, Yes full ROM and Yes no lymphadenopathy Chest: Chest palpation & inspection: normal inspection of the chest Resp: Effort & Inspection: normal respiratory effort and able to speak in complete sentences GI: Inspection: Yes normal to inspection Palpation (GI): Soft to palpation, not firm, nontender, no guarding and not rigid Neuro: General: patient oriented x3 and moves all extremities Cranial nerves: Yes Equal, round and reactive pupils present Cognition (Neuro): n ormal cognition Extrem: General: Yes normal to inspection, Yes full ROM and Yes capillary refill normal Psych: Appearance: grossly normal Mental Status: mental status grossly normal Affect: normal affect Attitude: cooperative Thought process: N ormal thought process present Thought content: Normal thought content present Insight: Good insight present (Psych) Medications Administered Discontinued Medications Generic Name Dose Route Start Last Admin Trade Name Freq PRN Reason Stop Dose Admin Sodium Chloride 1,000 mls @ 999 mls/hr 05/11/24 07:00 05/11/24 07:00 Ns IV 05/11/24 08:00 999 mls/hr .Q1H1M JASON Administration Lorazepam 1 mg 05/11/24 06:46 05/11/24 06:59 Lorazepam 2 Mg/Ml Vial IVPUSH 05/11/24 06:47 1 mg ONCE ONE Administration Ondansetron HCl 4 mg 05/11/24 06:46 05/11/24 07:00 Ondansetron Hcl 4 Mg/2 Ml Vial IVPUSH 05/11/24 06:47 4 mg ONCE ONE Administration Potassium Chloride 40 meq 05/11/24 07:08 05/11/24 07:16 Potassium Chloride Packet 20 Meq Packet PO 05/11/24 07:09 40 meq ONCE ONE Administration Medical Decision Making Medical Decision Making [facility] Narrative: Patient is a 39 year old assigned female at with a history of HTN and anxiety presenting to the emergency department today with back pain, chest pain, and epigastric pain. Patient's physical exam was unremarkable. Patient's blood work showed mild elevation of WBC count and LFTs but were otherwise unremarkable. Patient's EKG was unremarkable. Patient's chest x-ray showed no acute process. Patient's abdominal US showed cholelithiasis without cholecystitis. Patient's clinical presentation is most consistent with biliary colic. I explained my physical exam findings as well as all test results to the patient. I answered all questions asked by the patient. I stressed the importance of the patient taking her medication as directed (either prescribed or as the over the counter packaging recommends). I stressed the importance of the patient following up with her primary care provider and a general surgeon to discuss her gallbladder. I stressed the importance of the patient returning to the emergency department immediately if her symptoms were to worsen or if she were to develop any dizziness, shortness of breath, difficulty breathing, chest pain, blurry vision, loss of vision, nausea, vomiting, abdominal pain, fever, chills, back pain, or any other complaints. Patient verbalized agreement and understanding with this treatment plan and discharge. Differential Diagnosis Differential Diagnoses: The differential diagnosis associated with the presentation includes Cholelithiasis Panic attack NSTEMI STEMI Admission/Observation Consideration of admission/observation: Escalation of care including admission/observation considered Patient would have been admitted to the hospital had her work up had any findings where hospital admission was appropriate and her clinical presentation warranted hospital admission. Lab Data [facility] Lab Attestation statement: I reviewed the patient's lab results. My interpretation of these results are in the [facility] Rationale portion of this note. 05/11/24 06:40 05/11/24 06:40 Labs: Lab Results 05/11/24 Range/Units 06:40 WBC 14.6 H (4.8-10.8) X10*3/uL RBC 4.43 (4.20-5.50) X10*6/uL Hgb 12.9 (12.0-16.0) g/dl Hct 36.4 L (37.0-47.0) % MCV 82.2 (80.0-98.0) fL MCH 29.1 (27.0-33.0) pg MCHC 35.4 H (31.0-35.0) g/dl RDW 14.0 (11.0-16.0) % Plt Count 272 (160-400) X10*3/uL MPV 11.0 (9.4-12.3) fL Immature Gran % (Auto) 0.6 H (0.0-0.4) % Neut % (Auto) 71.9 (45-73) % Lymph % (Auto) 19.8 L (20-40) % Cochran % (Auto) 4.9 (2-11) % Eos % (Auto) 2.4 (0-4) % Baso % (Auto) 0.4 (0-2) % Lymph # (Auto) 2.9 (1.2-4.9) X10*3/uL Cochran # (Auto) 0.7 (0.1-1.2) X10*3/uL Eos # (Auto) 0.4 (0.0-0.4) X10*3/uL Baso # (Auto) 0.1 (0.0-0.2) X10*3/uL Abs Immat Gran (auto) 0.09 H (0.00-0.03) X10*3/uL Absolute Neuts (auto) 10.5 H (2.0-8.3) x10*3/uL Absolute Nucleated RBC 0.000 (0.0-0.012) X10*3/uL Nucleated RBC % (auto) 0.0 (0.0-0.2) /100WBC Sodium 138 (135-145) mmol/L Potassium 2.8 L* (3.3-5.1) mmol/L Chloride 104 (96-108) mmol/L Carbon Dioxide 22 (22-29) mmol/L Anion Gap 15 (12-20) BUN 10 (9-16) mg/dL Creatinine 0.80 (0.5-1.4) mg/dL Estim Creat Clear Calc 111.9 Estimated GFR > 60 Random Glucose 113 (60-115) mg/dL Calcium 8.9 (8.4-10.2) mg/dL Magnesium 1.9 (1.6-2.6) mg/dL Total Bilirubin 0.4 (0.0-1.0) mg/dL AST 85 H (5-31) U/L ALT 45 H (0-31) U/L Alkaline Phosphatase 103 (39-117) U/L Troponin I High Sens < 2.7 (<3.5-17.0) ng/L Total Protein 7.0 (6.5-8.0) g/dL Albumin 3.8 (3.5-5.0) g/dL Lipase 34 (8-78) U/L Independent Interpretation I performed an independent interpretation of an: EKG, Plain X-Ray and Ultrasound Interpretation: My interpretation is in agreement with the radiologist's impression of these imaging studies. - EXAMINATION: US ABDOMEN LIMITED CLINICAL INFORMATION: Right upper quadrant pain. COMPARISON: None available. TECHNIQUE: Real-time imaging of the right upper quadrant abdominal viscera. FINDINGS: PANCREAS: Normal. LIVER: Normal. The liver is normal in size. The liver contour is normal. Parenchymal echogenicity is normal. No focal hepatic lesion. There is no intrahepatic biliary duct dilatation seen. GALLBLADDER: Small echogenic dependent foci within the gallbladder lumen likely correspond to small gallstones, measuring 1 to 2 mm in diameter. Small polyps are possible, though not favored. No sonographic Silverio's sign. Normal wall thickness. No pericholecystic fluid. COMMON BILE DUCT: Normal in caliber measuring 0.5 cm in diameter. RIGHT KIDNEY: Normal. No hydronephrosis. No renal calculi or focal parenchymal lesions. The kidney measures 12.3 cm in maximum dimension. FREE FLUID: None. US/US abdomen limited IMPRESSION: Cholelithiasis without evidence of acute cholecystitis. Dictated By: David Abreu MD Signed By: Electronically signed by David Abreu MD 05/11/24 1005 - EXAMINATION: XR CHEST CLINICAL INFORMATION: Chest pain COMPARISON: None available. TECHNIQUE: 2 views of the chest were obtained. FINDINGS: No significant abnormality is noted involving the heart, lungs, mediastinum, bony thorax or soft tissues. XR/XR chest 2V IMPRESSION: No acute process. Dictated By: Vishal Dawkins MD Signed By: Electronically signed by Vishal Dawkins MD 05/11/24 0734 - Vent. Rate: 063 BPM Atrial Rate: 063 BPM P-R Int: 154 ms QRS Dur: 116 ms QT Int: 488 ms P-R-T Axes: 061 -04 031 degrees QTc Int: 499 ms Normal sinus rhythm Incomplete right bundle branch block Prolonged QT Abnormal ECG No previous ECGs available Electronically Signed By:SIVAKUMAR NAYAK MD Dictated By: Sivakumar Nayak MD Signed By: Electronically signed by Sivakumar Nayak MD 05/11/24 1114 Radiology Impression Discussion of test interpretation with radiology: I have reviewed the radiologist's reading. Independent Historian Clinical information obtained from an independent historian. History obtained from or confirmed by: EMS (EMS provided additional history and confirmed the history provided by the patient.) Discharge Plan Discharge Clinical Impression: Biliary colic, Cholelithiasis Patient Disposition: Home, Self-Care Instructions: Biliary Colic (ED), Gallstones (ED) Additional Instructions: Your ultrasound showed gallstones but no obstruction. The pain you felt today was likely secondary to biliary colic (gallbladder attack). You should follow up with a general surgeon to have a HIDA scan done to ensure your gallbladder is functioning appropriately. Avoid spicy, fried, and acid foods. Follow up with your primary care provider. Return to the emergency department immediately if your symptoms worsen or if you develop any dizziness, shortness of breath, difficulty breathing, chest pain, blurry vision, loss of vision, nausea, vomiting, abdominal pain, fever, chills, back pain, or any other complaints. Prescriptions: No Action metoclopramide HCl [Reglan] 10 mg tablet 10 mg PO Q6H PRN (Reason: nausea and vomiting) Qty: 14 0RF cyclobenzaprine 10 mg tablet 10 mg PO BEDTIME PRN (Reason: muscle spasm) Qty: 3 0RF ketorolac 10 mg tablet 10 mg PO Q6H PRN (Reason: pain) 5 Days Qty: 20 0RF Referrals: [facility] General Surgeons [Provider Group] (Call to establish and follow up with a general surgeon to discuss your gallbladder.) [facility] [place] Medicine [Provider Group] (Call to establish and follow up with a primary care provider. If you already have a primary care provider, please follow up with them.) [facility] [facility] [Provider Group] [facility] [Provider Group] Stand Alone Forms: Work/School Release Interventions: ED Discharge Assessment Last Done: 05/11/24 10:37 Discharge Date/Time: 05/11/24 10:38 Print Language: Citizen [place]
[2024-05-11 06:45] LABS: MANUAL DIFF FLAG NO
[2024-05-11 06:46] LABS: Basophils Absolute Auto 0.1 X10*3/uL (0.0-0.2); Basophils Percent Auto 0.4 % (0-2); Eosinophils Absolute Auto 0.4 X10*3/uL (0.0-0.4); Eosinophils Percent Auto 2.4 % (0-4); Hematocrit 36.4 % (37.0-47.0); Hemoglobin 12.9 g/dl (12.0-16.0); Imm Gran Abs Auto 0.09 X10*3/uL (0.00-0.03); Imm Gran Pct Auto 0.6 % (0.0-0.4); Lymphocytes Absolute Auto 2.9 X10*3/uL (1.2-4.9); Lymphocytes Percent Auto 19.8 % (20-40); Mean Corpuscular HGB Conc 35.4 g/dl (31.0-35.0); Mean Corpuscular Hemoglobin 29.1 pg (27.0-33.0); Mean Corpuscular Volume 82.2 fL (80.0-98.0); Monocytes Absolute Auto 0.7 X10*3/uL (0.1-1.2); Monocytes Percent Auto 4.9 % (2-11); Neutrophils Absolute Auto 10.5 x10*3/uL (2.0-8.3); Neutrophils Percent Auto 71.9 % (45-73); Platelet Count 272 X10*3/uL (160-400); Red Blood Count 4.43 X10*6/uL (4.20-5.50); White Blood Count 14.6 X10*3/uL (4.8-10.8)
[2024-05-11] MEDS: LORazepam 2 MG/ML VIAL 1 MG IVPUSH (06:59)
[2024-05-11] MEDS: ondansetron HCL 4 MG/2 ML VIAL IVPUSH (07:00)
[2024-05-11] MEDS: 0.9 % Sodium Chloride 1,000 ML 999 ML IV (07:00)
[2024-05-11 07:04] LABS: Alanine Aminotransferase 45 U/L (0-31); Albumin Level 3.8 g/dL (3.5-5.0); Alkaline Phosphatase 103 U/L (39-117); Anion Gap 15 (12-20); Aspartate Amino Transferase 85 U/L (5-31); Bilirubin Total 0.4 mg/dL (0.0-1.0); Blood Urea Nitrogen 10 mg/dL (9-16); Calcium 8.9 mg/dL (8.4-10.2); Carbon Dioxide 22 mmol/L (22-29); Chloride 104 mmol/L (96-108); Creatinine Clr Calc Pharmacy 111.9; Estimated Glomerular Filt Rate > 60; Glucose Random 113 mg/dL (60-115); Lipase 34 U/L (8-78); Potassium 2.8 mmol/L (3.3-5.1); Sodium 138 mmol/L (135-145)
[2024-05-11 07:06] LABS: Troponin-I High Sensitivity < 2.7 ng/L (<3.5-17.0)
[2024-05-11] MEDS: Potassium Chloride Packet 20 MEQ PACKET 40 MEQ PO (07:16)
[2024-05-11 07:20] VITALS: BP 149/80; PULSE 69; RESP 20; TEMP 36.4; O2SAT 98
[2024-05-11 07:30] LABS: Magnesium 1.9 mg/dL (1.6-2.6)
[2024-05-11 10:25] VITALS: BP 149/77; PULSE 67; RESP 17; TEMP 36.7; O2SAT 99
[2024-05-11 10:37] VITALS: BP 149/77; PULSE 67; RESP 17; TEMP 36.7; O2SAT 99
== END 2024-05-11 10:38 | disposition home or self-care (01) ==
PROVIDERS: Physician Assistant Medical; Emergency Provider Emergency Medicine
DX: K80.50 Calculus of bile duct without cholangitis or cholecystitis without obstruction (principal); R07.89 Other chest pain; M54.6 Pain in thoracic spine; R10.11 Right upper quadrant pain; R11.2 Nausea with vomiting, unspecified; Z79.899 Other long term (current) drug therapy
CPT/HCPCS: 36415; 71046; 76705; 80053; 83690; 83735; 84484; 85025; 93005; 96361; 96374; 96375; 99284; 99285; J2060; J2405

== ENCOUNTER → 2024-05-11 06:30 | Outpatient (BNV) | payer OTHER, SELFPAY | PROVIDERS: Emergency Provider Emergency Medicine; Visit Provider Internal Medicine Cardiovascular Disease | DX: R07.9 Chest pain, unspecified (principal) | CPT/HCPCS: 93010 ==

== ENCOUNTER 2024-05-18 04:17 | Emergency (ER) | payer OTHER, SELFPAY ==
--- NOTE | ~2024-05-18 | US_ITS ---
EXAMINATION: US ABDOMEN LIMITED CLINICAL INFORMATION: Cholelithiasis, worsening pain. Cholecystitis? COMPARISON: Ultrasound from 05/11/2024 TECHNIQUE: Real-time imaging of the right upper quadrant is focused on the gallbladder. FINDINGS: Gallbladder is physiologically distended and a few small echogenic calculi are noted. No evidence of sludge in the gallbladder lumen. No edematous thickening of the gallbladder wall. Gallbladder wall is 2-3 mm thick (see saved aranda images). There is no overt pericholecystic fluid. Common bile duct is normal in caliber; it measures up to 0.5 cm diameter. The liver is partially included in [id number]. The visualized liver has normal size, contour and parenchymal echotexture. US/US abdomen limited IMPRESSION: The gallbladder is normal in size and again noted is mild cholelithiasis. However, no sonographic evidence of acute cholecystitis or biliary tract obstruction.
[2024-05-18 04:20] VITALS: BP 204/88; PULSE 83; RESP 18; TEMP 36.8; O2SAT 95; BMI 27.7
--- NOTE | 2024-05-18 04:37 | ECG_ITS ---
Test Reason : HYPERTENSION Blood Pressure : / mmHG Vent. Rate : 076 BPM Atrial Rate : 076 BPM P-R Int : 130 ms QRS Dur : 098 ms QT Int : 410 ms P-R-T Axes : 060 002 037 degrees QTc Int : 461 ms Normal sinus rhythm Normal ECG When compared with ECG of 11-MAY-2024 06:30, No significant change was found Referred By: Generic ED Physician Electronically Signed By:MUNIR ODONNELL
--- NOTE | 2024-05-18 04:44 | ED.ABDPAIN ---
HPI - Abdominal Pain General Chief Complaint: Abdominal Pain Stated Complaint: gall bladder attack? Time Seen by Provider: 05/18/24 04:43 Source: patient Mode of arrival: ambulatory Limitations: no limitations History of Present Illness ED Provider: gerhard MORE narrative: Patient history of gallstone was seen here on 05/11 shows small multiple gallstones comes here for increased pain started just prior to arrival with nausea vomiting patient woke up at 02:00 with pain no fever no chills Related Data Previous Rx's ?Medication ?Instructions ?Recorded metoclopramide HCl 10 mg tablet 10 mg PO Q6H PRN nausea and 04/30/21 (Reglan) vomiting #14 tabs cyclobenzaprine 10 mg tablet 10 mg PO BEDTIME PRN muscle spasm 05/02/21 #3 tabs ketorolac 10 mg tablet 10 mg PO Q6H PRN pain 5 days #20 05/02/21 tabs oxycodone 5 mg tablet 5 mg PO Q6H PRN pain #20 tabs 05/18/24 Allergies Allergy/AdvReac Type Severity Reaction Status Date / Time morphine Allergy Itching Verified 05/18/24 04:21 Review of Systems Review of Systems Yes all other systems are reviewed and are negative PMFSH Past Medical History Medical History Patient denies medical problems Social History Social History Smoked in Last 30 Days: Yes Substance Use Type: Marijuana Advance Directives: No Advance Directives Information Provided: No Do you have a plan to hurt others: No Plan Patient : No Physical Exam ED Vital Signs: Vital Signs - 24 hr 05/18/24 04:20 05/18/24 06:17 Temperature 98.3 F 97.6 F Pulse Rate 83 67 Respiratory Rate 18 16 Blood Pressure 204/88 H 139/68 Pulse Oximetry 95 97 Oxygen Delivery Method Room Air Room Air BMI result Body Mass Index 27.7 Appearance: Alert. Oriented X3. In moderate distress Eyes: PERRLA, No Nystagmus ENT: Pharynx normal. Oral Mucosa moist Neck: Normal inspection. Neck supple. CVS: Normal heart rate and rhythm. Pulses normal. Respiratory: No respiratory distress. Equal air entry bilateral, no wheezing/rales/rhonchi Abdomen: Soft tender right upper quadrant Silverio sign positive Bowel sounds are present, no mass palpable, no CVA tenderness Skin: Skin warm and dry. Normal skin color. Normal skin turgor. Extremities: No lower extremity edema. No calf tenderness Neuro: Oriented X 3. Medical Decision Making Medical Decision Making [facility] Narrative: Patient with Cholelithiasis continued to have pain got worse last night with normal WBC count slightly elevated AST ALT with normal bilirubin afebrile ultrasound showed small filling defect in the CBD with slight focal swelling and fluid collection patient feels much better now taking p.o. fluids will discharge patient home advised to follow up with surgeon Differential Diagnosis Differential Diagnoses: The differential diagnosis associated with the presentation includes Admission/Observation Consideration of admission/observation: Escalation of care including admission/observation considered Lab Data [facility] Lab Attestation statement: I reviewed the patient's lab results. 05/18/24 04:40 05/18/24 04:40 Labs: Lab Results 05/18/24 Range/Units 04:40 WBC 9.7 (4.8-10.8) X10*3/uL RBC 4.51 (4.20-5.50) X10*6/uL Hgb 13.0 (12.0-16.0) g/dl Hct 36.8 L (37.0-47.0) % MCV 81.6 (80.0-98.0) fL MCH 28.8 (27.0-33.0) pg MCHC 35.3 H (31.0-35.0) g/dl RDW 14.1 (11.0-16.0) % Plt Count 271 (160-400) X10*3/uL MPV 10.9 (9.4-12.3) fL Immature Gran % (Auto) 0.4 (0.0-0.4) % Neut % (Auto) 72.8 (45-73) % Lymph % (Auto) 17.2 L (20-40) % Harris % (Auto) 5.9 (2-11) % Eos % (Auto) 3.4 (0-4) % Baso % (Auto) 0.3 (0-2) % Lymph # (Auto) 1.7 (1.2-4.9) X10*3/uL Harris # (Auto) 0.6 (0.1-1.2) X10*3/uL Eos # (Auto) 0.3 (0.0-0.4) X10*3/uL Baso # (Auto) 0.0 (0.0-0.2) X10*3/uL Abs Immat Gran (auto) 0.04 H (0.00-0.03) X10*3/uL Absolute Neuts (auto) 7.1 (2.0-8.3) x10*3/uL Absolute Nucleated RBC 0.000 (0.0-0.012) X10*3/uL Nucleated RBC % (auto) 0.0 (0.0-0.2) /100WBC Sodium 139 (135-145) mmol/L Potassium 3.4 D (3.3-5.1) mmol/L Chloride 106 (96-108) mmol/L Carbon Dioxide 23 (22-29) mmol/L Anion Gap 13 (12-20) BUN 7 L (9-16) mg/dL Creatinine 0.85 (0.5-1.4) mg/dL Estim Creat Clear Calc 104.6 Estimated GFR > 60 Random Glucose 120 H (60-115) mg/dL Calcium 9.1 (8.4-10.2) mg/dL Total Bilirubin 0.7 (0.0-1.0) mg/dL AST 69 H (5-31) U/L ALT 60 H (0-31) U/L Alkaline Phosphatase 140 H (39-117) U/L Total Protein 7.7 (6.5-8.0) g/dL Albumin 4.1 (3.5-5.0) g/dL Lipase 29 (8-78) U/L Independent Interpretation I performed an independent interpretation of an: Ultrasound Radiology Impression Discussion of test interpretation with radiology: I have reviewed the radiologist's reading. Medications Administered Discontinued Medications Generic Name Dose Route Start Last Admin Trade Name Freq PRN Reason Stop Dose Admin Famotidine 20 mg 05/18/24 04:49 05/18/24 04:54 Famotidine/Pf 20 Mg/2 Ml Vial IVPUSH 05/18/24 04:50 20 mg ONCE ONE Administration Hydromorphone HCl 1 mg 05/18/24 04:43 05/18/24 04:51 Hydromorphone Hcl 1 Mg/Ml Syringe IVPUSH 05/18/24 04:44 1 mg ONCE ONE Administration Protocol Sodium Chloride 1,000 mls @ 999 mls/hr 05/18/24 04:43 05/18/24 04:51 Ns IV 05/18/24 05:43 999 mls/hr .Q1H1M ONE Administration Ondansetron HCl 4 mg 05/18/24 04:43 05/18/24 04:51 Ondansetron Hcl 4 Mg/2 Ml Vial IVPUSH 05/18/24 04:44 4 mg ONCE ONE Administration Discharge Plan Discharge Clinical Impression: Cholelithiasis Patient Disposition: Home, Self-Care Instructions: Gallstones (ED) Additional Instructions: Drink plenty of fluids Avoid fried food Follow with your surgeon as schaduled Report to the ER if worsening of pain Pain medication as prescribed Prescriptions: New oxycodone 5 mg tablet 5 mg PO Q6H PRN (Reason: pain) Qty: 20 0RF Rx Instructions: Partial Fill upon patient request. No Action metoclopramide HCl [Reglan] 10 mg tablet 10 mg PO Q6H PRN (Reason: nausea and vomiting) Qty: 14 0RF cyclobenzaprine 10 mg tablet 10 mg PO BEDTIME PRN (Reason: muscle spasm) Qty: 3 0RF ketorolac 10 mg tablet 10 mg PO Q6H PRN (Reason: pain) 5 Days Qty: 20 0RF Print Language: Slovak
[2024-05-18 04:45] LABS: Basophils Percent Auto 0.3 % (0-2); Eosinophils Absolute Auto 0.3 X10*3/uL (0.0-0.4); Eosinophils Percent Auto 3.4 % (0-4); Hematocrit 36.8 % (37.0-47.0); Imm Gran Abs Auto 0.04 X10*3/uL (0.00-0.03); Imm Gran Pct Auto 0.4 % (0.0-0.4); Lymphocytes Absolute Auto 1.7 X10*3/uL (1.2-4.9); Lymphocytes Percent Auto 17.2 % (20-40); MANUAL DIFF FLAG NO; Mean Corpuscular HGB Conc 35.3 g/dl (31.0-35.0); Mean Corpuscular Hemoglobin 28.8 pg (27.0-33.0); Mean Corpuscular Volume 81.6 fL (80.0-98.0); Mean Platelet Volume 10.9 fL (9.4-12.3); Monocytes Absolute Auto 0.6 X10*3/uL (0.1-1.2); Monocytes Percent Auto 5.9 % (2-11); Neutrophils Absolute Auto 7.1 x10*3/uL (2.0-8.3); Neutrophils Percent Auto 72.8 % (45-73); Platelet Count 271 X10*3/uL (160-400); Red Blood Count 4.51 X10*6/uL (4.20-5.50); Red Cell Distribution Width 14.1 % (11.0-16.0); White Blood Count 9.7 X10*3/uL (4.8-10.8)
[2024-05-18] MEDS: ondansetron HCL 4 MG/2 ML VIAL IVPUSH (04:51)
[2024-05-18] MEDS: HYDROmorphone HCl 1 MG/ML SYRINGE IVPUSH (04:51)
[2024-05-18] MEDS: 0.9 % Sodium Chloride 1,000 ML 999 ML IV (04:51)
[2024-05-18] MEDS: Famotidine/PF 20 MG/2 ML VIAL IVPUSH (04:54)
[2024-05-18 04:58] LABS: Alanine Aminotransferase 60 U/L (0-31); Albumin Level 4.1 g/dL (3.5-5.0); Alkaline Phosphatase 140 U/L (39-117); Anion Gap 13 (12-20); Aspartate Amino Transferase 69 U/L (5-31); Bilirubin Total 0.7 mg/dL (0.0-1.0); Blood Urea Nitrogen 7 mg/dL (9-16); Calcium 9.1 mg/dL (8.4-10.2); Carbon Dioxide 23 mmol/L (22-29); Chloride 106 mmol/L (96-108); Creatinine Clr Calc Pharmacy 104.6; Estimated Glomerular Filt Rate > 60; Glucose Random 120 mg/dL (60-115); Lipase 29 U/L (8-78); Potassium 3.4 mmol/L (3.3-5.1); Sodium 139 mmol/L (135-145); Total Protein 7.7 g/dL (6.5-8.0)
[2024-05-18 06:17] VITALS: BP 139/68; PULSE 67; RESP 16; TEMP 36.4; O2SAT 97
[2024-05-18 07:44] VITALS: BP 139/68; PULSE 67; RESP 16; TEMP 36.4; O2SAT 97
== END 2024-05-18 07:45 | disposition home or self-care (01) ==
PROVIDERS: Emergency Provider Internal Medicine
DX: K80.20 Calculus of gallbladder without cholecystitis without obstruction (principal); R11.2 Nausea with vomiting, unspecified; I10 Essential (primary) hypertension; Z79.899 Other long term (current) drug therapy
CPT/HCPCS: 36415; 76705; 80053; 83690; 85025; 93005; 96361; 96374; 96375; 99284; 99285; J1170; J2405

== ENCOUNTER 2024-05-20 10:58 | Outpatient (AMB) | payer OTHER, SELFPAY ==
--- NOTE | 2024-05-20 11:02 | A.OFFVIS_ITS ---
Vital Signs 05/20/24 11:14 Height 5 ft 10 in Weight 199 lb 11.821 oz BMI 28.7 Pulse 66 Intake Visit Reasons: Gallstones Intake Note: Patient is seen in office for ER follow up visit, following gallstones. Pt c/o: past 2 wks been to ER twice, sharp pain RUQ/back, nausea, vomit, pain radiated to the chest with burning sensation, loose stool, had scan done, denies diarrhea, constipation, pain at night and with any type of food ER/us: 05/18/24 Director Marketing Required: No Accompanied by: Self / Same As Patient Allergies morphine Allergy (Verified 05/20/24 11:06) Itching Medication List - Last Reconciled 05/20/24 by Beni Hua MD risankizumab-rzaa (Skyrizi) mg subcut HPI Comments Details: 39-year-old female patient presenting with complaints of right upper quadrant abdominal pain radiating to the back and chest of 2 weeks duration. Patient has been in the emergency department on 2 occasions and was diagnosed with symptomatic cholelithiasis. She reports nausea and vomiting associated with the pain. She has a prior history of acid reflux since October and feels that the symptoms have worsened over this time. Recent laboratories revealed a normal total bilirubin however AST and ALT were mildly elevated. She presents today to discuss possible cholecystectomy. [facility] Medical History Patient denies medical problems Social History Substance Use Type: Marijuana Review of Systems Const All systems reviewed & are unremarkable except as noted in HPI and below Denies chills, Denies fever(s), Denies headache(s), Denies poor appetite and Denies weakness ENT Denies headache(s) Card Denies chest pain, Denies irregular heart rhythm, Denies palpitations and Denies dyspnea Resp Denies cough, Denies excessive phlegm production and Denies dyspnea GI Reports abdominal pain, Reports nausea and Reports vomiting Denies urinary frequency Musc Denies back pain, Denies muscle weakness and Denies numbness Skin/Breast Denies changing lesions and Denies unusual bruising Neuro Denies headache(s), Denies numbness, Denies paresthesias and Denies weakness Psych Denies anxiety and Denies depression Endo Denies palpitations Brennon/Lymph Denies lymphadenopathy Physical Exam Const General: cooperative and no acute distress Nutritional Appearance: well nourished Orientation/consciousness: patient oriented x3 Limitations: no limitations HEENT Head: Yes normocephalic and Yes atraumatic Ears: hearing grossly normal bilaterally Resp Effort & Inspection: normal respiratory effort, no audible wheezes, no cough and no respiratory distress Cardio Jugular venous distension: no JVD GI Inspection: Yes normal to inspection Palpation (GI): Soft to palpation, Tenderness to palpation present (GI) in the RUQ; Silverio's sign negative, no guarding, not rigid and No hepatosplenomegaly present Skin Other: Warm, dry, no rash Neuro General: patient oriented x3 Extrem General: Yes no clubbing, cyanosis or edema Assessment & Plan Assessment & Plan (1) Biliary colic: Code(s): K80.50 - Calculus of bile duct without cholangitis or cholecystitis without obstruction Category: Medical Plan 39-year-old female patient presenting with complaints of right upper quadrant abdominal pain found to have gallstones within the gallbladder. On examination the patient does have tenderness in the right upper quadrant suggestive of symptomatic cholelithiasis. Patient also has a history of fatty food intolerance and reflux. We discussed laparoscopic or possible open cholecystectomy and after review of the procedure, risks, and alternatives, she consents to the surgery. She will be scheduled at her earliest convenience Medications: Discontinued metoclopramide HCl (Reglan) Discontinued Reason: Patient Completed Course 10 mg PO Q6H PRN 14 tabs 0RF nausea and vomiting cyclobenzaprine Discontinued Reason: Patient Completed Course 10 mg PO BEDTIME PRN 3 tabs 0RF muscle spasm ketorolac Discontinued Reason: Patient Completed Course 10 mg PO Q6H PRN 20 tabs 0RF pain 5 days oxycodone Partial Fill upon patient request. Discontinued Reason: Patient Completed Course 5 mg PO Q6H PRN 20 tabs 0RF pain Coding Level of Care Code New Pt Level 4 (19918) Diagnoses Biliary colic K80.50
[2024-05-20 11:14] VITALS: PULSE 66; BMI 28.7
== END 2024-05-20 11:27 | disposition home or self-care (01) ==
PROVIDERS: Visit Provider Surgery
DX: K80.50 Calculus of bile duct without cholangitis or cholecystitis without obstruction (principal)
CPT/HCPCS: 99204

== ENCOUNTER → 2024-05-20 10:58 | Outpatient (BNVA) | payer OTHER, SELFPAY | PROVIDERS: Visit Provider Surgery | DX: K80.50 Calculus of bile duct without cholangitis or cholecystitis without obstruction (principal) | CPT/HCPCS: 99202 ==

== ENCOUNTER 2024-05-26 02:41 | Day surgery (SDC) | payer OTHER, SELFPAY ==
[2024-05-26] VITALS (15 sets, daily range): BP systolic 114–180; BP diastolic 50–100; PULSE 51–68; RESP 12–20; TEMP 36.1–36.6; O2SAT 96–100; BMI 27.4; BMI 27.3
--- NOTE | ~2024-05-26 | CT_ITS ---
EXAMINATION: CT ABDOMEN AND PELVIS WITH CONTRAST CLINICAL INFORMATION: Right upper quadrant pain COMPARISON: Abdominal ultrasound 05/18/2024. TECHNIQUE: Multidetector volumetric images were obtained from the superior aspect of the liver through the pubic symphysis following administration 85 mL of Omnipaque 350 intravenous contrast. Sagittal and coronal reformatted images were obtained on the technologist's workstation. Oral contrast: No This CT examination was performed using dose optimization techniques as appropriate, variously including the following: *Automated exposure control *Adjustment of mA and/or kV according to patient size (this includes techniques or standardized protocols for targeted exams where dose is matched to indication/reason for exam; i.e. extremities or head) *Use of iterative reconstruction technique DLP: 749 mGy-cm FINDINGS: LUNG BASES: The visualized lung bases are unremarkable. LIVER, GALLBLADDER, AND BILIARY TREE: The liver is normal in size, shape, and attenuation. No focal hepatic lesion or biliary ductal dilatation is present. Mild pericholecystic fluid is present and mild diffuse neural thickening of the gallbladder identified. No biliary duct dilatation. PANCREAS: Unremarkable. SPLEEN: Unremarkable. ADRENAL GLANDS: Unremarkable. KIDNEYS AND URETERS: The kidneys are normal in size, shape, and attenuation. No hydronephrosis, hydroureter, or calculi seen. No perinephric stranding. BLADDER: Unremarkable. GASTROINTESTINAL TRACT: Normal appearance of the appendix. No free intraperitoneal fluid or gas collections identified. No intestinal dilatation or mural thickening. ABDOMINAL WALL: No significant hernia is appreciated. LYMPH NODES: Normal. VASCULAR: Unremarkable. PELVIC VISCERA: Unremarkable. OSSEOUS STRUCTURES: L4-L5 intervertebral disc space narrowing and vacuum phenomena. CT/CT abdomen pelvis w IV con IMPRESSION: *Findings suspicious for acute cholecystitis. Mild pericholecystic fluid and mild diffuse mural thickening of the gallbladder are identified and are suspicious for acute cholecystitis. No biliary duct dilatation. *Normal appendix. *L4-L5 chronic degenerative disc disease. Fleischner guidelines were followed. Electronically signed by: Elio Devi MD 05/26/2024 06:19 AM EDT
[2024-05-26 02:56] LABS: MANUAL DIFF FLAG NO
[2024-05-26 02:57] LABS: Basophils Percent Auto 0.4 % (0-2); Eosinophils Absolute Auto 0.4 X10*3/uL (0.0-0.4); Eosinophils Percent Auto 4.3 % (0-4); Hematocrit 37.6 % (37.0-47.0); Hemoglobin 12.8 g/dl (12.0-16.0); Imm Gran Abs Auto 0.02 X10*3/uL (0.00-0.03); Imm Gran Pct Auto 0.2 % (0.0-0.4); Lymphocytes Absolute Auto 3.1 X10*3/uL (1.2-4.9); Lymphocytes Percent Auto 33.5 % (20-40); Mean Corpuscular Hemoglobin 28.3 pg (27.0-33.0); Mean Corpuscular Volume 83.2 fL (80.0-98.0); Mean Platelet Volume 10.9 fL (9.4-12.3); Monocytes Absolute Auto 0.4 X10*3/uL (0.1-1.2); Monocytes Percent Auto 4.8 % (2-11); Neutrophils Absolute Auto 5.2 x10*3/uL (2.0-8.3); Neutrophils Percent Auto 56.8 % (45-73); Platelet Count 363 X10*3/uL (160-400); Red Blood Count 4.52 X10*6/uL (4.20-5.50); Red Cell Distribution Width 14.2 % (11.0-16.0); White Blood Count 9.2 X10*3/uL (4.8-10.8)
[2024-05-26 03:10] LABS: Alanine Aminotransferase 29 U/L (0-31); Albumin Level 4.1 g/dL (3.5-5.0); Alkaline Phosphatase 122 U/L (39-117); Anion Gap 18 (12-20); Aspartate Amino Transferase 35 U/L (5-31); Bilirubin Total 0.5 mg/dL (0.0-1.0); Blood Urea Nitrogen 15 mg/dL (9-16); Calcium 9.2 mg/dL (8.4-10.2); Carbon Dioxide 22 mmol/L (22-29); Chloride 106 mmol/L (96-108); Creatinine Clr Calc Pharmacy 96.1; Estimated Glomerular Filt Rate > 60; Glucose Random 115 mg/dL (60-115); Lipase 46 U/L (8-78); Potassium 3.6 mmol/L (3.3-5.1); Sodium 142 mmol/L (135-145); Total Protein 7.5 g/dL (6.5-8.0)
--- NOTE | 2024-05-26 03:25 | ED_ITS ---
HPI - Abdominal Pain General Chief Complaint: Abdominal Pain Stated Complaint: Gall Bladder Attack Time Seen by Provider: 05/26/24 03:03 Source: patient Mode of arrival: ambulatory Limitations: no limitations History of Present Illness ED Provider: Dr. Jena Ferreira HPI narrative: Patient comes to the emergency room complaining of abdominal pain. Patient states that this is her 3rd visit in 2 weeks for the same. Patient has been diagnosed with cholelithiasis, states that she is scheduled for surgery next week with Dr. Hua. However, patient states that any time that she eats anything, she gets intense pain lasting for hours. Today, she has been having pain for almost 7 hours, multiple episodes of vomiting, no diarrhea. No fever or chills. A UTI symptoms. Related Data Home Medications ?Medication ?Instructions ?Recorded ?Confirmed risankizumab-rzaa 150 mg/mL mg subcut 05/20/24 05/20/24 subcutaneous pen injector (Skyrizi) Allergies Allergy/AdvReac Type Severity Reaction Status Date / Time morphine Allergy Itching Verified 05/26/24 02:47 Review of Systems Review of Systems Constitutional : No Weight loss, No Fever, No Chills, No Night Sweats, No Fatigue, No Malaise ENT/Mouth : No Hearing loss, No Ear Pain, No Nasal Congestion, No Sinus Pain, No Hoarseness, No sore throat, No Rhinorrhea, No Swallowing Difficulty Eyes: No Eye Pain, No Swelling, No Redness, No Foreign Body, No Discharge, No Vision Changes Cardiovascular : No Chest Pain, No SOB, No Dyspnea on Exertion, No Orthopnea, No Edema, No Palpitations Respiratory : No Cough, No Sputum, No Wheezing, No Smoke Exposure, No Dyspnea Gastrointestinal : Complaining of nausea vomiting, no diarrhea, complaining of severe right upper quadrant pain after eating lasting for hours. Genitourinary : no irregular bleeding, No Dysuria, No Urinary Frequency, No Hematuria, No Urinary Incontinence, No Urgency, No Flank Pain, No Urinary Flow Changes, No Hesitancy Musculoskeletal : No joint pain, No Myalgias, No Joint Swelling Skin : No Skin Lesions, No rash Neuro : No Weakness, No Numbness, No Paresthesias, No Loss of Consciousness, No Dizziness, No Headache Psych : No Anxiety/Panic, No Depression, No SI/HI/AH/VH, No Social Issues, Heme/Lymph: No Bruising, No Bleeding,No Lymphadenopathy Endocrine : No Polyuria, No Polydipsia, No Temperature Intolerance PMF Past Medical History Medical History (Updated 05/26/24 @ 07:18 by Jena Ferreira MD) Hypertension Patient denies medical problems Surgical History (Updated 05/26/24 @ 03:33 by Jena Ferreira MD) Hx of tubal ligation Social History Social History Alcohol intake: current Alcohol intake frequency: holidays/special occasions only Smoked in Last 30 Days: No Use of substances other than those prescribed or required for medical reasons: Yes Substance Use Type: Marijuana Substance Use Frequency: Daily Advance Directives: No Advance Directives Information Provided: Yes Patient : No Physical Exam ED Vital Signs: Vital Signs - 24 hr 05/26/24 02:43 05/26/24 04:37 05/26/24 05:05 Temperature 97.9 F 97.8 F Pulse Rate 68 56 Respiratory Rate 20 20 16 Blood Pressure 176/86 H 114/57 L Pulse Oximetry 98 96 Oxygen Delivery Method Room Air Room Air BMI result Body Mass Index 27.4 Const Other: Appearance: Alert. Oriented X3. Crying, looks very uncomfortable, in position Eyes: Pupils equal, round and reactive to light. ENT: Pharynx normal. Neck: Normal inspection. Neck supple. No lymph nodes noted. No crepitus CVS: Normal heart rate and rhythm. Pulses normal. Normal S1 and S2 Respiratory: No respiratory distress. Breath sounds normal. No Wheezing. No rales Abdomen: Soft , tenderness to palpation in right upper quadrant and epigastric area. Positive Silverio sign Skin: Skin warm and dry. Normal skin color. Normal skin turgor. Extremities: No lower extremity edema. No Lacerations. No Rash Neuro: Oriented X 3. No motor deficit. No sensory deficit. Moving all extremities. No slurred speech. CN 2 through 12 grossly intact Psych: calm, cooperative, normal affect Course Course Course Narrative: -patient looks very uncomfortable. -patient known to have cholecystitis and is scheduled for surgery. -patient receiving IV fluids, Zofran and morphine for pain This is patient's 3rd visit in 2 weeks for same symptoms. Medical Decision Making Medical Decision Making [facility] Narrative: -my interpretation of labs, normal hematology, normal chemistry, LFTs a bit elevated -patient looks very uncomfortable, received Toradol, Zofran, Compazine, still pretty nauseous. For pain control patient was given Dilaudid. -my interpretation of CT scan, diffuse mural thickening of the gallbladder, consistent with acute cholecystitis -I discussed the patient with Dr. Hua, pt being admitted Differential Diagnosis Differential Diagnoses: The differential diagnosis associated with the presentation includes (Acute cholecystitis, pancreatitis, biliary colic) Admission/Observation Consideration of admission/observation: Escalation of care including admission/observation considered Consult Healthcare Provider Management of the patient was discussed with: Hospitalist Lab Data MDM Lab Attestation statement: I reviewed the patient's lab results. 05/26/24 02:52 05/26/24 02:52 Labs: Lab Results 05/26/24 Range/Units 02:52 WBC 9.2 (4.8-10.8) X10*3/uL RBC 4.52 (4.20-5.50) X10*6/uL Hgb 12.8 (12.0-16.0) g/dl Hct 37.6 (37.0-47.0) % MCV 83.2 (80.0-98.0) fL MCH 28.3 (27.0-33.0) pg MCHC 34.0 (31.0-35.0) g/dl RDW 14.2 (11.0-16.0) % Plt Count 363 D (160-400) X10*3/uL MPV 10.9 (9.4-12.3) fL Immature Gran % (Auto) 0.2 (0.0-0.4) % Neut % (Auto) 56.8 (45-73) % Lymph % (Auto) 33.5 (20-40) % [place] % (Auto) 4.8 (2-11) % Eos % (Auto) 4.3 H (0-4) % Baso % (Auto) 0.4 (0-2) % Lymph # (Auto) 3.1 (1.2-4.9) X10*3/uL [place] # (Auto) 0.4 (0.1-1.2) X10*3/uL Eos # (Auto) 0.4 (0.0-0.4) X10*3/uL Baso # (Auto) 0.0 (0.0-0.2) X10*3/uL Abs Immat Gran (auto) 0.02 (0.00-0.03) X10*3/uL Absolute Neuts (auto) 5.2 (2.0-8.3) x10*3/uL Absolute Nucleated RBC 0.000 (0.0-0.012) X10*3/uL Nucleated RBC % (auto) 0.0 (0.0-0.2) /100WBC Sodium 142 (135-145) mmol/L Potassium 3.6 (3.3-5.1) mmol/L Chloride 106 (96-108) mmol/L Carbon Dioxide 22 (22-29) mmol/L Anion Gap 18 (12-20) BUN 15 (9-16) mg/dL Creatinine 0.92 (0.5-1.4) mg/dL Estim Creat Clear Calc 96.1 Estimated GFR > 60 Random Glucose 115 (60-115) mg/dL Calcium 9.2 (8.4-10.2) mg/dL Total Bilirubin 0.5 (0.0-1.0) mg/dL AST 35 H (5-31) U/L ALT 29 (0-31) U/L Alkaline Phosphatase 122 H (39-117) U/L Total Protein 7.5 (6.5-8.0) g/dL Albumin 4.1 (3.5-5.0) g/dL Lipase 46 (8-78) U/L Independent Interpretation I performed an independent interpretation of an: CT Scan Radiology Impression Discussion of test interpretation with radiology: I have reviewed the radiologist's reading. Radiologist Impression: LUNG BASES: The visualized lung bases are unremarkable. LIVER, GALLBLADDER, AND BILIARY TREE: The liver is normal in size, shape, and attenuation. No focal hepatic lesion or biliary ductal dilatation is present. Mild pericholecystic fluid is present and mild diffuse neural thickening of the gallbladder identified. No biliary duct dilatation. PANCREAS: Unremarkable. SPLEEN: Unremarkable. ADRENAL GLANDS: Unremarkable. KIDNEYS AND URETERS: The kidneys are normal in size, shape, and attenuation. No hydronephrosis, hydroureter, or calculi seen. No perinephric stranding. BLADDER: Unremarkable. GASTROINTESTINAL TRACT: Normal appearance of the appendix. No free intraperitoneal fluid or gas collections identified. No intestinal dilatation or mural thickening. ABDOMINAL WALL: No significant hernia is appreciated. LYMPH NODES: Normal. VASCULAR: Unremarkable. PELVIC VISCERA: Unremarkable. OSSEOUS STRUCTURES: L4-L5 intervertebral disc space narrowing and vacuum phenomena. CT/CT abdomen pelvis w IV con IMPRESSION: *Findings suspicious for acute cholecystitis. Mild pericholecystic fluid and mild diffuse mural thickening of the gallbladder are identified and are suspicious for acute cholecystitis. No biliary duct dilatation. *Normal appendix. *L4-L5 chronic degenerative disc disease. Fleischner guidelines were followed. Medications Administered Discontinued Medications Generic Name Dose Route Start Last Admin Trade Name Freq PRN Reason Stop Dose Admin Hydromorphone HCl 1 mg 05/26/24 04:32 05/26/24 04:37 Hydromorphone Hcl 1 Mg/Ml Syringe IVPUSH 05/26/24 04:33 1 mg ONCE ONE Administration Protocol Sodium Chloride 1,000 mls @ 999 mls/hr 05/26/24 03:15 05/26/24 04:32 Ns IVCONT 05/26/24 04:15 Infused .Q1H1M ONE Infusion Iohexol 85 ml 05/26/24 05:28 05/26/24 05:29 Iohexol 350 Mg/Ml 100 Ml Infus..Btl IV 05/26/24 05:29 85 ml ONCE ONE Administration Ketorolac Tromethamine 30 mg 05/26/24 03:15 05/26/24 03:30 Ketorolac Tromethamine 30 Mg/Ml Vial IVPUSH 05/26/24 03:16 30 mg ONCE ONE Administration Ondansetron HCl 4 mg 05/26/24 03:15 05/26/24 03:30 Ondansetron Hcl 4 Mg/2 Ml Vial IVPUSH 05/26/24 03:16 4 mg ONCE ONE Administration Prochlorperazine Edisylate 10 mg 05/26/24 03:51 05/26/24 04:01 Prochlorperazine Edisylate 10 Mg/2 Ml Vial IVPUSH 05/26/24 03:52 10 mg ONCE ONE Administration Critical Care Time Critical Care Time Critical Care Time: Yes Total Critical Care Time: 75 Attestation: I have personally provided critical care time. Time includes review of lab data, radiology results, discussion with consultants, and monitoring for potential decompensation. Intervention performed as documented. Discharge Plan Discharge Clinical Impression: Acute cholecystitis Patient Disposition: Admitted As Inpatient Prescriptions: No Action Skyrizi 150 mg/mL pen injector subcut Print Language: Welsh
[2024-05-26] MEDS: ondansetron HCL 4 MG/2 ML VIAL IVPUSH ×2 (03:30→10:58)
[2024-05-26] MEDS: 0.9 % Sodium Chloride 1,000 ML 999 ML IVCONT (03:30)
[2024-05-26] MEDS: Ketorolac Tromethamine 30 MG/ML VIAL IVPUSH (03:30)
[2024-05-26] MEDS: Prochlorperazine Edisylate 10 MG/2 ML VIAL IVPUSH (04:01)
[2024-05-26] MEDS: HYDROmorphone HCl 1 MG/ML SYRINGE IVPUSH (04:37)
[2024-05-26] MEDS: iohexoL 350 MG/ML 100 ML INFUS..BTL 85 ML IV (05:29)
--- NOTE | 2024-05-26 08:11 | PM.HPGS ---
History of Present Illness History of Present Illness Date of Service: 05/26/24 Chief complaint: Gall Bladder Attack Narrative: Lucy Reynolds is a 39 year old female presenting to the emergency department with complaints of abdominal pain in the right upper quadrant associated with nausea and vomiting. She reports severe nausea and vomiting and subsequently presented to the emergency department for re-evaluation. She has had multiple previous visits for biliary colic and was evaluated in the office. Arrangements have been made for an elective laparoscopic cholecystectomy. This morning she feels somewhat improved but would prefer to have her surgery advanced. Review of Systems Review of Systems: Yes all other systems are reviewed and are negative PMFSH Past Medical History Medical History (Updated 05/26/24 @ 07:18 by Jena Ferreira MD) Hypertension Patient denies medical problems Surgical History Surgical History (Updated 05/26/24 @ 03:33 by Jena Ferreira MD) Hx of tubal ligation Social History Social History Alcohol intake: current Alcohol intake frequency: holidays/special occasions only Smoked in Last 30 Days: No Use of substances other than those prescribed or required for medical reasons: Yes Substance Use Type: Marijuana Substance Use Frequency: Daily Advance Directives: No Advance Directives Information Provided: Yes Patient : No Meds Allergies Allergy/AdvReac Type Severity Reaction Status Date / Time morphine Allergy Itching Verified 05/26/24 02:47 Home Medications ?Medication ?Instructions ?Recorded ?Confirmed ?Last Taken ?Type risankizumab-rzaa 150 mg/mL mg subcut 05/20/24 05/20/24 Unknown History subcutaneous pen injector (Yesenia) Physical Exam Vital Signs: Vital Signs: Last Vital Signs Temp 97.8 F 05/26/24 05:05 Pulse 56 05/26/24 05:05 Resp 16 05/26/24 05:05 BP 114/57 L 05/26/24 05:05 Pulse Ox 96 05/26/24 05:05 O2 Del Method Room Air 05/26/24 05:05 BMI result Body Mass Index 27.4 Const: General: cooperative and no acute distress Nutritional Appearance: well nourished Orientation/consciousness: patient oriented x3 Limitations: no limitations HEENT: Head: Yes normocephalic and Yes atraumatic Ears: hearing grossly normal bilaterally Resp: Effort & Inspection: normal respiratory effort, no audible wheezes, no cough and no respiratory distress Cardio: Jugular venous distension: no JVD GI: Inspection: Yes normal to inspection and No distended Palpation (GI): Soft to palpation, Tenderness to palpation present (GI) in the RUQ and Silverio's sign positive, no guarding, not rigid and hepatosplenomegaly present Skin: Other: Warm, dry, no rash, no jaundice Neuro: General: patient oriented x3 Extrem: General: Yes normal to inspection and Yes no clubbing, cyanosis or edema Results Results Labs: Short CBC 05/26/24 Range/Units 02:52 WBC 9.2 (4.8-10.8) X10*3/uL Hgb 12.8 (12.0-16.0) g/dl Hct 37.6 (37.0-47.0) % Plt Count 363 D (160-400) X10*3/uL BMP 05/26/24 02:52 Sodium 142 Potassium 3.6 Chloride 106 Carbon Dioxide 22 BUN 15 Creatinine 0.92 Calcium 9.2 Liver Function 05/26/24 Range/Units 02:52 Total Bilirubin 0.5 (0.0-1.0) mg/dL AST 35 H (5-31) U/L ALT 29 (0-31) U/L Alkaline Phosphatase 122 H (39-117) U/L Albumin 4.1 (3.5-5.0) g/dL Assessment and Plan (1) Acute cholecystitis: Status: Acute Plan 39-year-old female patient presenting with a previous history of biliary colic now with acute cholecystitis noted by CT abdomen and pelvis. Findings were discussed in detail with the patient and recommendation made for proceeding with laparoscopic or possible open cholecystectomy today. After discussion of the procedure, risks, and alternatives, she consents to the laparoscopic or possible open cholecystectomy. She has been added onto the operative schedule for today. Quality Stroke Does the patient have a stroke diagnosis?: No VTE Prior VTE?: No VTE Risk Level:: Surgical - low VTE Device Contraindication: N/A - Device Ordered VTE Drug Contraindication: N/A - Med Ordered Procedures Date of Service Date of Service: 05/26/24
[2024-05-26] MEDS: Piperacillin Sodium/Tazobactam 3.375 GM in 0.9 % Sodium Chloride 50 ML IV (08:17)
--- NOTE | 2024-05-26 08:42 | HO.ANESPROP2 ---
HPI - Anesthesia Eval Consult details Narrative: katalina rodney PMFSH Active Problems Active Problems: All Active Problems Acute cholecystitis (Acute) Past Medical History Medical History Hypertension Patient denies medical problems Family History Family history of problems with anesthesia: No Surgical History Surgical History Hx of tubal ligation History of Problems with Anesthesia: No Social History Social History Alcohol intake: current Alcohol intake frequency: holidays/special occasions only Smoked in Last 30 Days: No Use of substances other than those prescribed or required for medical reasons: Yes Substance Use Type: Marijuana Substance Use Frequency: Daily Advance Directives: No Advance Directives Information Provided: Yes Patient : No Meds Allergies Allergy/AdvReac Type Severity Reaction Status Date / Time morphine Allergy Itching Verified 05/26/24 02:47 Active Medications: Current Medications Lactated Ringer's (Lr) 1,000 mls @ 100 mls/hr IVCONT .Q10H JASON Cefotetan Disodium 2 gm/ (Sodium Chloride) 50 mls @ 100 mls/hr IV PREOP ONE Stop: 05/26/24 08:44 Ondansetron HCl (Ondansetron Hcl 4 Mg/2 Ml Vial) 4 mg IVPUSH QID PRN PRN Reason: Nausea Home Medications ?Medication ?Instructions ?Recorded ?Confirmed ?Last Taken ?Type clobetasol 0.05 % topical cream topical 05/26/24 Unknown History oxycodone 5 mg tablet 5 mg PO Q6H PRN pain 05/26/24 05/26/24 Unknown History risankizumab-rzaa 150 mg/mL mg subcut 05/26/24 Unknown History subcutaneous pen injector (Jose De Jesus) Exam Height,Weight and Vital Signs: Height 5 ft 10 in Weight 86.581 kg Last Vital Signs Temp 97.8 F 05/26/24 05:05 Pulse 56 05/26/24 05:05 Resp 16 05/26/24 05:05 BP 114/57 L 05/26/24 05:05 Pulse Ox 96 05/26/24 05:05 O2 Del Method Room Air 05/26/24 05:05 Pertinent Lab Results Pertinent Lab Results: Laboratory Tests 05/26/24 02:52 WBC 9.2 RBC 4.52 Hgb 12.8 Hct 37.6 MCV 83.2 MCH 28.3 MCHC 34.0 RDW 14.2 Plt Count 363 D MPV 10.9 Immature Gran % (Auto) 0.2 Neut % (Auto) 56.8 Lymph % (Auto) 33.5 [place] % (Auto) 4.8 Eos % (Auto) 4.3 H Baso % (Auto) 0.4 Lymph # (Auto) 3.1 [place] # (Auto) 0.4 Eos # (Auto) 0.4 Baso # (Auto) 0.0 Abs Immat Gran (auto) 0.02 Absolute Neuts (auto) 5.2 Absolute Nucleated RBC 0.000 Nucleated RBC % (auto) 0.0 Sodium 142 Potassium 3.6 Chloride 106 Carbon Dioxide 22 Anion Gap 18 BUN 15 Creatinine 0.92 Estim Creat Clear Calc 96.1 Estimated GFR > 60 Random Glucose 115 Calcium 9.2 Total Bilirubin 0.5 AST 35 H ALT 29 Alkaline Phosphatase 122 H Total Protein 7.5 Albumin 4.1 Lipase 46 Airway Mallampati Class: II TM Dist: >3cm Neck ROM: Full Heart: rrr Lungs: cta Assessment and Plan Assessment Anesthesia Assessment: Anesthesia Plan Discussed and Smoking Cess. Discussed (smokes pam) Final Anesthetic Review Family History of Problems with Anesthesia: No History of Problems with Anesthesia: No NPO: Yes ASA Class: III Final Preanesthetic Review: No Changes in Pt Med Stat, Meds/Allgs Chart Reviewed (on jose de jesus), Consent Obtained/Reviewed and Anes Risks/Benef Reviewed Patient Risk: Intermediate Procedure Risk: Intermediate Anesthetic Plan Anesthetic Plan: GA Disposition: Standard PACU
--- NOTE | 2024-05-26 08:43 | PC.NURSE ---
REPORT GIVEN TO [facility] FOR TRANSFER FOR SURGICAL PROCEDURE
--- NOTE | 2024-05-26 08:52 | PC.NURSE ---
TO THE OR
[2024-05-26] MEDS: Lactated Ringers 1,000 ML 100 ML IVCONT (09:08)
--- NOTE | 2024-05-26 10:06 | PHA.MEDREC ---
Addendum entered by Medhat Dia RPh 05/26/24 11:52: Med rec was reviewed by [facility]. Original Note: Pharmacy Consult ? Medication Reconciliation Pharmacy has completed the medication reconciliation. Spoke to patient to confirm med list . patient states she is only on Skyrizi q 3 months , last dose was beginning of May. she wasn't sure of the specific date. Claim history was 04-21-24.
--- NOTE | 2024-05-26 10:28 | W.PM.OPN ---
Operative Note Operative Note Date of Service: 05/26/24 Narrative: Preoperative diagnosis: Acute cholecystitis, cholelithiasis Postoperative diagnosis: Same Procedure: Laparoscopic cholecystectomy Surgeon: Beni Hua MD Shafting Cleaner: KACI Aguirre Anesthesia: General endotracheal Indications for procedure: 39-year-old female patient with a previous history of biliary colic now presenting with acute onset of abdominal pain upper quadrant associated with nausea and vomiting. CT abdomen and pelvis confirmed edema in the gallbladder wall consistent with acute cholecystitis. Operative findings: Acutely inflamed gallbladder with marked edema within the bowel wall. Specimen: gallbladder Estimated blood loss: 2 mL Complications: None Procedure details: Patient was brought to the OR and placed in a supine position. After administering general anesthesia the patient's abdomen was prepped with ChloraPrep and draped in a sterile fashion. A surgical time-out was called the consent confirmed. Patient received preoperative antibiotics and Venodyne boots were in place. Local anesthesia consisting of 0.5% Sensorcaine without epinephrine was infiltrated in a periumbilical region. A 5 mm incision was made above the umbilicus in a transverse fashion. The Veress needle was then inserted while elevating abdominal cavity with towel clips. After positive drop test the abdomen was insufflated to a pressure of 15 mm of mercury. The Veress needle was then removed and a 5 mm trocar inserted. The camera was inserted in the abdomen explored. A 12 mm trocar was then placed in the epigastrium. Two 5 mm trocars placed in the right upper quadrant by the delivery driver assistant. The patient was placed in reverse Trendelenburg positioning and rotated to the left. The gallbladder was grasped with the fundus and retracted cephalad by the delivery driver assistant. The infundibulum was then grasped and retracted away from the liver bed, also by the delivery driver assistant. The Dolphin dissected was then used by the surgeon to dissect the peritoneum off the infundibulum to reveal the junction with the cystic duct. Cystic artery was noted slightly medial and posterior to the cystic duct. After obtaining a critical view the cystic duct was doubly clipped and divided. The cystic artery was then doubly clipped and divided. The gallbladder was then dissected off the liver bed using electrocautery with an L hook. Hemostasis was assured all times using the electrocautery. When the gallbladder is completely dissected off the liver bed was placed in an Endo-Catch bag and brought out through the epigastric incision. The gallbladder was sent to pathology for further examination. The abdomen was then re-examined. The liver bed was irrigated and suctioned dry. No bleeding or bile leak could be identified. CO2 was then evacuated and all trocars removed. Fascia was closed at the epigastric incision using a [id number] 0 Polysorb suture. Skin was closed in all incisions using a subcuticular 4 0 Polysorb suture by both the surgeon and delivery driver assistant. Sterile dressings consisting of Steri-Strips, 2 x 2 gauze, and Tegaderm were then applied. The patient tolerated the procedure well. Sponge instrument and needle counts reported as correct. The patient was transferred to PACU in stable condition.
[2024-05-26] MEDS: Albuterol/Iprat 2.5/0.5MG 3 ML AMPUL.NEB INHALE (11:14)
[2024-05-26] MEDS: HYDROmorphone HCl 0.5 MG/0.5 ML SYRINGE 0.25 MG IVPUSH ×2 (11:40→11:45)
[2024-05-26] MEDS: Haloperidol Lactate 5 MG/ML VIAL 1 MG IVPUSH (11:53)
== END 2024-05-26 13:39 | disposition home or self-care (01) ==
LOC: HO.ED 07:18 → HO.SSS 08:21
PROVIDERS: Emergency Provider Emergency Medicine; PCP Nurse Practitioner Family; Visit Provider Surgery
PROC: 0FT44ZZ Resection of Gallbladder, Percutaneous Endoscopic Approach (ICD-10-PCS; CPT 47562; principal; 2024-05-26 08:40)
DX: K80.20 Calculus of gallbladder without cholecystitis without obstruction (principal); I10 Essential (primary) hypertension; F12.90 Cannabis use, unspecified, uncomplicated
CPT/HCPCS: 47562; 36415; 74177; 80053; 83690; 85025; 88304; 96361; 96374; 96375; 99214; 99284; 99285; J0737; J1100; J1170; J1630; J1885; J2250; J2405; J2543; J2704; J2795; J3010; Q9967

== ENCOUNTER → 2024-05-26 08:16 | Outpatient (BNV) | payer OTHER, SELFPAY | PROVIDERS: Emergency Provider Emergency Medicine; PCP Nurse Practitioner Family; Visit Provider Surgery | DX: K81.0 Acute cholecystitis (principal) | CPT/HCPCS: 47562 ==

== ENCOUNTER 2024-06-05 10:19 | Outpatient (AMB) | payer OTHER, SELFPAY ==
--- NOTE | 2024-06-05 10:22 | A.OFFVIS_ITS ---
Vital Signs 06/05/24 10:31 Height 5 ft 10 in Weight 197 lb 6 oz BMI 28.3 BP 139/65 Blood Pressure Location Lt brachial Position Sitting Pulse 63 Intake Visit Reasons: s/p lap rodney Intake Note: Patient is seen in office for post op assessment post laparoscopic cholecystectomy. Pt c/o: admits to nausea, vomit, diarrhea surgery:05/26/24 Allergies morphine Allergy (Verified 05/26/24 02:47) Itching Medication List - Last Reconciled 06/05/24 by Beni Hua MD risankizumab-rzaa (Skyrizi) 150 mg subcut [id number] HPI Comments Details: 39-year-old female patient returning 9 days following a laparoscopic cholecystectomy. She has some bruising in the abdomen on the right side as well as nausea which she feels improved with marijuana. She is staying away from fatty foods at this time. She also reports loose stool. She denies fever or chills. [facility] Medical History Acute cholecystitis Hypertension Patient denies medical problems Surgical History Hx laparoscopic cholecystectomy (05/26/24) Hx of tubal ligation Social History Alcohol intake: current Alcohol intake frequency: holidays/special occasions only Patient Tobacco Use Status: Never used Tobacco Substance Use Type: Marijuana Physical Exam Vital Signs: Last Vital Signs Pulse 63 06/05/24 10:31 BP 139/65 06/05/24 10:31 BMI result Body Mass Index 28.3 Const General: no acute distress Nutritional Appearance: well nourished Orientation/consciousness: patient oriented x3 Eyes Other: No icterus Resp Effort & Inspection: normal respiratory effort, no audible wheezes, no cough and no respiratory distress GI Other: Trocar incisions are clean and intact. There is some ecchymosis around the midclavicular trocar site. No hernia or infection is appreciated. Skin Other: Warm, dry, no rash, normal color Neuro General: patient oriented x3 Assessment & Plan Assessment & Plan (1) Acute cholecystitis: Code(s): K81.0 - Acute cholecystitis Category: Medical Plan 39-year-old female patient status post laparoscopic cholecystectomy. Her wounds are clean and intact without evidence of infection or hernia. She may resume normal activity as of 06/09/2024 and should follow up as needed. Coding Level of Care Code Global (29871) Diagnoses Acute cholecystitis K81.0
[2024-06-05 10:31] VITALS: BP 139/65; PULSE 63; BMI 28.3
== END 2024-06-05 10:34 | disposition home or self-care (01) ==
PROVIDERS: PCP Nurse Practitioner Family; Visit Provider Surgery
DX: K81.0 Acute cholecystitis (principal)
CPT/HCPCS: 99024

== ENCOUNTER → 2024-06-05 10:19 | Outpatient (BNVA) | payer OTHER, SELFPAY | PROVIDERS: PCP Nurse Practitioner Family; Visit Provider Surgery | DX: R11.2 Nausea with vomiting, unspecified (principal); R19.7 Diarrhea, unspecified; Z48.815 Encounter for surgical aftercare following surgery on the digestive system; Z90.49 Acquired absence of other specified parts of digestive tract | CPT/HCPCS: 99212 ==

== ENCOUNTER 2025-07-09 22:24 | Emergency (ER) | payer OTHER, SELFPAY ==
--- NOTE | ~2025-07-09 | CT_ITS ---
CLINICAL HISTORY: hematuria, flank pain CT abdomen and pelvis without contrast Comparison: CT/SR - CT ABDOMEN PELVIS WITH IV CONTRAST - 05/26/24 05:12 EDT Findings: The lung bases are clear. Cholecystectomy. No urolithiasis. Abdominal solid organs unremarkable. No bowel obstruction, pneumoperitoneum, or pneumatosis. Uterus and ovaries unremarkable. Normal appendix. No ascites or hernia. No acute fracture. IMPRESSION: No urolithiasis or hydronephrosis. This document has been electronically signed by: Norma Perdomo MD on 07/10/2025 02:19:24
[2025-07-09 22:40] VITALS: BP 173/76; PULSE 81; RESP 20; TEMP 36.6; O2SAT 98; BMI 28.4
[2025-07-09 23:08] LABS: Appearance Urine Cloudy; Glucose Urine UA Negative (Negative); PH 5.0 (5.0-9.0); Specific Gravity - Urine >= 1.030 (1.005-1.025); UMIC TRIGGER UACC YES
[2025-07-09 23:20] LABS: UACC Culture Trigger YES
--- NOTE | 2025-07-09 23:53 | ED.FEMALEGU ---
HPI - Female Genitourinary General Chief complaint: Urogenital-Female Stated complaint: pain urinating; blood in urine Time Seen by Provider: 07/09/25 23:36 Source: patient Mode of arrival: ambulatory Limitations: no limitations History of Present Illness ED Provider: JOI HPI Narrative: 40 yo female with no sig PMH here with c/o feeling like she has a UTI - she notes dysuria, frequency, feeling like something is blocking her urine from coming out. She has bilateral low back pain. She denies fevers, n/v/. She did try a PCN she got OTC at a store which made her symptoms so much worse. She notes increased blood in the urine today. MD elicited complaint: dysuria and UTI Onset (ago): day(s) (several) Location of symptoms: suprapubic Severity: moderate Quality of pain: burning Consistency: intermittent Urinary symptoms: Dysuria, Urgency, Frequency and Hematuria Exacerbating factors: urination Associated symptoms: back pain Treatment prior to arrival: none Related Data Home Medications ?Medication ?Instructions ?Recorded ?Confirmed risankizumab-rzaa 150 mg/mL 150 mg subcut [id number] 05/26/24 06/05/24 subcutaneous pen injector (Skyrizi) Previous Rx's ?Medication ?Instructions ?Recorded nitrofurantoin 100 mg PO BID 7 days #14 caps 07/10/25 monohydrate/macrocrystals 100 mg capsule (Macrobid) Allergies Allergy/AdvReac Type Severity Reaction Status Date / Time morphine Allergy Itching Verified 07/09/25 22:45 Review of Systems Review of Systems: Constitutional : No Fever, No Chills ENT/Mouth : No sore throat Eyes: No Eye Pain, No Swelling, No Redness Cardiovascular : No Chest Pain, No SOB Respiratory : No Cough, No Sputum, No Wheezing Gastrointestinal : no Nausea, no Vomiting, No Diarrhea, positive abdominal pain Genitourinary : positive Dysuria, positive urinary frequency, positive Hematuria, positive Flank Pain, positive hesitancy Musculoskeletal : No joint pain, No Myalgias Skin : No Skin Lesions, No rash Neuro : No Weakness, No Numbness, No Headache All other systems reviewed and are negative PMFSH Past Medical History Attestation statement: The following information was validated with the patient. Medical History Acute cholecystitis Hypertension Patient denies medical problems Surgical History Hx laparoscopic cholecystectomy (05/26/24) Hx of tubal ligation Social History Social History Alcohol intake: current Alcohol intake frequency: does not drink Patient Tobacco Use Status: Never used Tobacco Smoked in Last 30 Days: No Use of substances other than those prescribed or required for medical reasons: No Substance Use Type: Marijuana Advance Directives: No Advance Directives Information Provided: Yes Do you have a plan to hurt others: No Plan Physical Exam Vital Signs: Vital Signs: Last Vital Signs Temp 97.8 F 07/09/25 22:40 Pulse 81 07/09/25 22:40 Resp 20 07/09/25 22:40 BP 173/76 H 07/09/25 22:40 Pulse Ox 98 07/09/25 22:40 O2 Del Method Room Air 07/09/25 22:40 BMI result Body Mass Index 28.4 Appearance: Alert. Oriented X3. No acute distress. Eyes: Pupils equal, round and reactive to light. ENT: Pharynx normal. Neck: Normal inspection. Neck supple. CVS: Normal heart rate and rhythm. Pulses normal. Respiratory: No respiratory distress. Breath sounds normal. Abdomen: Soft and nontender. bilateral CVA ttp Skin: Skin warm and dry. Normal skin color. Extremities: No lower extremity edema. Neuro: Oriented X 3. No motor deficit. No sensory deficit. Medications Administered Discontinued Medications Generic Name Dose Route Start Last Admin Trade Name Freq PRN Reason Stop Dose Admin Lactated Ringer's 1,000 mls @ 999 mls/hr 07/09/25 23:51 07/10/25 01:26 Lr IV 07/10/25 00:51 Infused .Q1H1M ONE Infusion Ketorolac Tromethamine 15 mg 07/09/25 23:51 07/10/25 00:14 Ketorolac Tromethamine 15 Mg/Ml Vial IVPUSH 07/09/25 23:52 15 mg ONCE ONE Administration Phenazopyridine HCl 200 mg 07/09/25 23:51 07/10/25 00:15 Phenazopyridine Hcl 200 Mg Tablet PO 07/09/25 23:52 200 mg ONCE ONE Administration Medical Decision Making Medical Decision Making MDM Narrative: 40 yo female with no sig PMH here with c/o urinary symptoms and back pain at this time will obtain labs, UA, start on IV toradol/fluids and obtain renal colic CT scan. No toxic, tolerating PO Differential Diagnosis Differential Diagnoses: The differential diagnosis associated with the presentation includes UTI, renal colic Admission/Observation Consideration of admission/observation: Escalation of care including admission/observation considered labs reassuring no stone start on oral abx and DC home Lab Data [facility] Lab Attestation statement: I reviewed the patient's lab results. 07/09/25 23:56 07/09/25 23:56 Labs: Lab Results 07/09/25 07/09/25 Range/Units 23:03 23:56 WBC 11.0 H (4.8-10.8) X10*3/uL RBC 4.80 (4.20-5.50) X10*6/uL Hgb 13.9 (12.0-16.0) g/dl Hct 40.3 (37.0-47.0) % MCV 84.0 (80.0-98.0) fL MCH 29.0 (27.0-33.0) pg MCHC 34.5 (31.0-35.0) g/dl RDW 14.5 (11.0-16.0) % Plt Count 278 (160-400) X10*3/uL MPV 11.2 (9.4-12.3) fL Immature Gran % (Auto) 0.5 H (0.0-0.4) % Neut % (Auto) 57.8 (45-73) % Lymph % (Auto) 29.1 (20-40) % [place] % (Auto) 7.5 (2-11) % Eos % (Auto) 4.6 H (0-4) % Baso % (Auto) 0.5 (0-2) % Lymph # (Auto) 3.2 (1.2-4.9) X10*3/uL [place] # (Auto) 0.8 (0.1-1.2) X10*3/uL Eos # (Auto) 0.5 H (0.0-0.4) X10*3/uL Baso # (Auto) 0.1 (0.0-0.2) X10*3/uL Abs Immat Gran (auto) 0.05 H (0.00-0.03) X10*3/uL Absolute Neuts (auto) 6.3 (2.0-8.3) x10*3/uL Absolute Nucleated RBC 0.000 (0.0-0.012) X10*3/uL Nucleated RBC % (auto) 0.0 (0.0-0.2) /100WBC Sodium 138 (135-145) mmol/L Potassium 3.5 (3.3-5.1) mmol/L Chloride 107 (96-108) mmol/L Carbon Dioxide 22 (22-29) mmol/L Anion Gap 13 (12-20) BUN 15 (9-16) mg/dL Creatinine 0.89 (0.5-1.4) mg/dL Estim Creat Clear Calc 100.0 Estimated GFR > 60 Random Glucose 99 (60-115) mg/dL Calcium 8.9 (8.4-10.2) mg/dL Beta HCG, Quant < 2 mIU/mL Urine Color Dark Yellow Urine Appearance Cloudy Urine pH 5.0 (5.0-9.0) Ur Specific [place] >= 1.030 H (1.005-1.025) Urine Protein 100 (2+) H (Neg-Trace) mg/dL Urine Glucose (UA) Negative (Negative) mg/dL Urine Ketones Trace (Negative) mg/dL Urine Blood Large (3+) H (Negative) Urine Nitrite Negative (Negative) Ur Leukocyte Esterase Small (1+) H (Negative) Urine RBC 11-20 H (0-2) /HPF Urine WBC 6-10 (0-5) /HPF Ur Squamous Epith Cells 11-20 (0-2) /HPF Urine Bacteria None Seen (None Seen) Hyaline Casts 6-10 (0-2) /LPF Urine Test Cancelled Independent Interpretation I performed an independent interpretation of an: CT Scan (no renal colic) Radiology Impression Discussion of test interpretation with radiology: I have reviewed the radiologist's reading. External Record Review External record reviewed: Outpatient record Prescription Management I considered prescription management with: Pain Medication and Antibiotic Discharge Plan Discharge Clinical Impression: Urinary tract infection Qualifiers: Urinary tract infection type: acute cystitis Hematuria presence: with hematuria Qualified Code(s): N30.01 - Acute cystitis with hematuria Patient Disposition: Home, Self-Care Instructions: Urinary Tract Infection in Women (ED) Additional Instructions: labs reassuring CT scan normal no stones return for worsening pain, fevers, unable to eat or drink Findings: The lung bases are clear. Cholecystectomy. No urolithiasis. Abdominal solid organs unremarkable. No bowel obstruction, pneumoperitoneum, or pneumatosis. Uterus and ovaries unremarkable. Normal appendix. No ascites or hernia. No acute fracture. IMPRESSION: No urolithiasis or hydronephrosis. Prescriptions: New nitrofurantoin monohyd/m-cryst [Macrobid] 100 mg capsule 100 mg PO BID 7 Days Qty: 14 0RF Rx Instructions: must administer with a meal/food No Action Skyrizi 150 mg/mL pen injector 150 mg subcut [id number] Rx Instructions: last dose Beginning of May ( Claim date 04-21-24) Stand Alone Forms: Work/School Release Print Language: French
[2025-07-10 00:10] LABS: MANUAL DIFF FLAG NO
[2025-07-10 00:11] LABS: Hematocrit 40.3 % (37.0-47.0); Hemoglobin 13.9 g/dl (12.0-16.0); Imm Gran Abs Auto 0.05 X10*3/uL (0.00-0.03); Imm Gran Pct Auto 0.5 % (0.0-0.4); Lymphocytes Absolute Auto 3.2 X10*3/uL (1.2-4.9); Mean Corpuscular HGB Conc 34.5 g/dl (31.0-35.0); Mean Corpuscular Hemoglobin 29.0 pg (27.0-33.0); Mean Corpuscular Volume 84.0 fL (80.0-98.0); NRBC Abs Auto 0.000 X10*3/uL (0.0-0.012); NRBC Pct Auto 0.0 /100WBC (0.0-0.2); Platelet Count 278 X10*3/uL (160-400); Red Blood Count 4.80 X10*6/uL (4.20-5.50); White Blood Count 11.0 X10*3/uL (4.8-10.8)
[2025-07-10] MEDS: Lactated Ringers 1,000 ML 999 ML IV (00:15)
--- NOTE | 2025-07-10 00:23 | PC.NURSE ---
Medicated pre mar.
[2025-07-10 00:29] LABS: Anion Gap 13 (12-20); Blood Urea Nitrogen 15 mg/dL (9-16); Calcium 8.9 mg/dL (8.4-10.2); Carbon Dioxide 22 mmol/L (22-29); Chloride 107 mmol/L (96-108); Creatinine Clr Calc Pharmacy 100.0; Estimated Glomerular Filt Rate > 60; Potassium 3.5 mmol/L (3.3-5.1); Sodium 138 mmol/L (135-145)
--- NOTE | 2025-07-10 02:06 | PC.NURSE ---
pt back from CT awaiting results.
--- NOTE | 2025-07-10 02:35 | PC.NURSE ---
pt medicated per nov. reviewed discharge instructions with pt. pt verbalized understanding, no sign of distress, Iv removed.
[2025-07-10 02:38] VITALS: BP 173/76; PULSE 81; RESP 20; TEMP 36.6; O2SAT 98
== END 2025-07-10 02:39 | disposition home or self-care (01) ==
PROVIDERS: Emergency Provider Emergency Medicine
DX: N30.01 Acute cystitis with hematuria (principal); I10 Essential (primary) hypertension; Z87.19 Personal history of other diseases of the digestive system; Z79.899 Other long term (current) drug therapy
CPT/HCPCS: 74176; 80048; 81001; 81025; 84702; 85025; 87086; 96361; 96374; 99284; 99285; J1885; J7120

== ENCOUNTER → 2025-07-10 00:03 | Outpatient (BNV) | payer MEDICAID, SELFPAY | PROVIDERS: Emergency Provider Emergency Medicine; Visit Provider Radiology Diagnostic Radiology | DX: R31.9 Hematuria, unspecified (principal) | CPT/HCPCS: 74176 ==